=== PATIENT | male | born 1970 | race Caucasian/White ===

== ENCOUNTER 2016-11-13 14:09 | Emergency (ER) | payer MEDICARE ==
[2016-11-13 14:18] VITALS: BP 147/93
[2016-11-13] MEDS ORDERED: diphenhydrAMINE 50 MG/ML SDV IM ONE (14:46)
--- NOTE | 2016-11-13 14:48 | EDM.PDOC ---
ED HPI GENERAL MEDICAL PROBLEM - General Chief Complaint: Allergic Reaction Stated Complaint: STUNG BY BEE Time Seen by Provider: 11/13/16 14:20 Source of Information: Reports: Patient History Limitations: Reports: No Limitations - History of Present Illness INITIAL COMMENTS - FREE TEXT/NARRATIVE: 46-year-old male stung on the lower lip by a bee within the last hour he's got significant swelling of his lip. He thought he was having an allergic reaction. No shortness of breath or wheezing, no other rash. Onset: Sudden Duration: Hour(s): (Within the last hour) Location: Reports: Face - Related Data Allergies Allergy/AdvReac Type Severity Reaction Status Date / Time erythromycin base AdvReac Stomach Verified 11/13/16 14:17 Upset Home Meds: Home Meds Divalproex Sodium [Depakote ER] 1,500 mg PO DAILY 12/22/14 [History] Ziprasidone HCl [Geodon] 240 mg PO DAILY 12/22/14 [History] Past Medical History HEENT History: Reports: Hard of Hearing, Impaired Vision Musculoskeletal History: Reports: Fracture Psychiatric History: Reports: Anxiety, Depression, Panic Attack Other Psychiatric History: anger issues, shizoeffective disorder - Infectious Disease History Infectious Disease History: Reports: Chicken Pox - Past Surgical History HEENT Surgical History: Reports: Myringotomy w Tube(s) Social & Family History - Tobacco Use Smoking Status *Q: Heavy Tobacco Smoker Years of Tobacco use: 35 Packs/Tins Daily: 1.5 Used Tobacco, but Quit: No Second Hand Smoke Exposure: Yes - Recreational Drug Use Recreational Drug Use: No Recreational Drug Type: Reports: Marijuana/Hashish Recreational Drug Use Frequency: Weekly ED ROS ALLERGIC REACTION - Review of Systems Review Of Systems: See Below Constitutional: Denies: Fever Respiratory: Denies: Shortness of Breath, Cough Cardiovascular: Denies: Chest Pain GI/Abdominal: Denies: Abdominal Pain, Nausea, Vomiting Neurological: Denies: Headache ED EXAM GENERAL NO PERIP PULSE - Physical Exam Exam: See Below Exam Limited By: No Limitations General Appearance: Alert, No Apparent Distress Throat/Mouth: Other (Patient has very significant edema of the lower lip but it is isolated to the lip. He has no oral mucosal swelling, airway compromise or other rash) Neck: Normal Inspection Respiratory/Chest: No Respiratory Distress, Lungs Clear Cardiovascular: Regular Rate, Rhythm Neurological: Alert, Oriented Psychiatric: Normal Affect, Normal Mood Course - Vital Signs Last Recorded V/S: Last Vital Signs Temp 99.1 F 11/13/16 14:21 Pulse 104 H 11/13/16 14:21 Resp 18 11/13/16 14:21 BP 147/93 H 11/13/16 14:21 Pulse Ox 98 11/13/16 14:21 - Orders/Labs/Meds Meds: Medications Discontinued Medications Generic Name Dose Route Start Last Admin Trade Name Nicholas PRN Reason Stop Dose Admin Diphenhydramine HCl 25 mg 11/13/16 14:46 11/13/16 14:54 Benadryl IM 11/13/16 14:47 25 mg ONETIME ONE Administration - Re-Assessments/Exams Free Text/Narrative Re-Assessment/Exam: 11/13/16 14:48 Patient was given 50 mg of Benadryl IM. It was explained to him that this is just a local reaction and cool compresses should reduce the swelling. He was offered steroids but declined. Departure - Departure Time of Disposition: 15:03 Disposition: Home, Self-Care 01 Condition: Good Clinical Impression: Local reaction to bee sting Qualifiers: Encounter type: initial encounter Injury intent: accidental or unintentional Qualified Code(s): T63.441A - Toxic effect of venom of bees, accidental ( unintentional), initial encounter - Discharge Information Instructions: Bee, Wasp, or Hornet Sting Referrals: PCP,None [Primary Care Provider] - Forms: ED Department Discharge Care Plan Goals: Cold compresses to the swollen area should help. Return at any time if trouble breathing or other concerns.
== END 2016-11-13 15:02 | disposition home or self-care (01) ==
LOC: JP.ED 14:09
DX: T63.441A Toxic effect of venom of bees, accidental (unintentional), initial encounter (principal); F17.210 Nicotine dependence, cigarettes, uncomplicated; F41.9 Anxiety disorder, unspecified; F32.9 Major depressive disorder, single episode, unspecified; Z96.22 Myringotomy tube(s) status; Z88.1 Allergy status to other antibiotic agents; Z79.899 Other long term (current) drug therapy
CPT/HCPCS: 96372; 99283; J1200

== ENCOUNTER 2017-06-13 19:22 | Inpatient (IN) | payer MEDICARE ==
[2017-06-13] MEDS ORDERED: SORBITOL PO ONE ×2 (19:23→20:30)
[2017-06-13] MEDS ORDERED: Lactated Ringers 1,000 ML IV ONE (19:23)
[2017-06-13] MEDS ORDERED: ACTIVATED CHARCOAL PO ONE ×2 (19:23→20:30)
[2017-06-13] MEDS ORDERED: Activated Charcoal/Water Susp 25 GM/120 ML Tube PO ONE ×2 (19:23→22:39)
[2017-06-13] MEDS ORDERED: Metoclopramide 10 MG/2 ML SDV IVPUSH ONE (19:24)
--- NOTE | 2017-06-13 19:38 | EDM.PDOCBH ---
ED HPI GENERAL MEDICAL PROBLEM - General Chief Complaint: Drug or Alcohol Abuse Stated Complaint: ILLNESS Time Seen by Provider: 06/13/17 19:25 Source of Information: Reports: Patient, EMS, Old Records History Limitations: Reports: No Limitations - History of Present Illness INITIAL COMMENTS - FREE TEXT/NARRATIVE: 47 yo male presents via EMS for overdose of Mirapex unknown amt, Depakote 500 mg x 49 tabs(per EMS' report), an unknown quantity of an unknown med, and a pint of vodka in a suicide attempt. Ingestions were roughly 90 min before arrival. Just as he finished his ingestions his own mother called him and he told her what he had done. She in turn called 911. Patient showed signs of moderate intoxication en route. Vitals stable. Admitted to EMS that he wants to . Actually, I suspect he took much less Depakote than was initially suspected. The #49 calculation represents the worse case scenario. This bottle dated had 49 tablets missing, but if he had taken them as prescribed the bottle would be fully empty and he would be onto his May refill. Onset: Today Onset Date: 06/13/17 Onset Time: 17:40 Duration: Minutes: Location: Reports: Generalized Quality: Reports: Other (no pain) Severity: Moderate Improves with: Reports: None Worsens with: Reports: Other (? time) Context: Reports: Other (suicide attempt) Associated Symptoms: Reports: Other (mild sedation). 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 (see below) (none) - Related Data Allergies Allergy/AdvReac Type Severity Reaction Status Date / Time erythromycin base AdvReac Stomach Verified 06/13/17 21:30 Upset Home Meds: Home Meds Divalproex Sodium [Depakote ER] 1,000 mg PO DAILY 12/22/14 [History] Pramipexole Di-HCl [Mirapex] 0.25 mg PO BID PRN 06/13/17 [History] Past Medical History HEENT History: Reports: Hard of Hearing, Impaired Vision Musculoskeletal History: Reports: Fracture Psychiatric History: Reports: Anxiety, Depression, Panic Attack Other Psychiatric History: anger issues, shizoeffective disorder - Infectious Disease History Infectious Disease History: Reports: Chicken Pox - Past Surgical History HEENT Surgical History: Reports: Myringotomy w Tube(s) Social & Family History - Tobacco Use Smoking Status *Q: Heavy Tobacco Smoker Years of Tobacco use: 35 Packs/Tins Daily: 1.5 Used Tobacco, but Quit: No Second Hand Smoke Exposure: Yes - Recreational Drug Use Recreational Drug Use: No Recreational Drug Type: Reports: Marijuana/Hashish Recreational Drug Use Frequency: Weekly ED ROS GENERAL - Review of Systems Review Of Systems: See Below Constitutional: Reports: No Symptoms HEENT: Reports: No Symptoms Respiratory: Reports: No Symptoms Cardiovascular: Reports: No Symptoms Endocrine: Reports: No Symptoms GI/Abdominal: Reports: No Symptoms : Reports: No Symptoms Musculoskeletal: Reports: No Symptoms Skin: Reports: No Symptoms Neurological: Reports: Other (mild sedation present on arrival. ) Psychiatric: Reports: Depression, Suicidal Ideation ED EXAM, BEHAVIORAL HEALTH - Physical Exam Exam: See Below Exam Limited By: No Limitations General Appearance: Alert, WD/WN, No Apparent Distress Eye Exam: Bilateral Eye: Normal Inspection Ears: Normal External Exam, Normal Canal, Hearing Grossly Normal Nose: Normal Inspection, Normal Mucosa, No Blood Throat/Mouth: Normal Inspection, Normal Lips, Normal Voice Head: Atraumatic, Normocephalic Neck: Normal Inspection Respiratory/Chest: No Respiratory Distress, Lungs Clear, Normal Breath Sounds, No Accessory Muscle Use Cardiovascular: Regular Rate, Rhythm GI/Abdominal: Normal Bowel Sounds, Soft, Non-Tender, No Distention Back Exam: Normal Inspection. No: CVA Tenderness (R), CVA Tenderness (L) Extremities: Normal Inspection, Normal Range of Motion, Non-Tender, No Pedal Edema Neurological: Alert, Normal Mood/Affect, CN II-XII Intact, Normal Cognition, No Motor/Sensory Deficits, Oriented x 3, Other (intoxication) Psychiatric: Alert, Normal Cognition, Normal Mood, Oriented, Depressed Mood, Flat Affect Skin Exam: Warm, Dry, Intact, Normal color, No rash COURSE, BEHAVIORAL HEALTH COMP - Course Vital Signs: Last Vital Signs Temp 37.0 C 06/14/17 00:05 Pulse 79 06/14/17 00:05 Resp 16 06/14/17 00:05 BP 101/49 L 06/14/17 00:05 Pulse Ox 98 06/14/17 00:05 Orders, Labs, Meds: Active Orders 24 hr Category Date Time Status Cardiac Monitoring [RC] .As Directed Care 06/13/17 19:24 Active DRUG SCREEN, URINE [URCHEM] Stat Lab 06/13/17 19:55 Ordered UA W/MICROSCOPIC [URIN] Stat Lab 06/13/17 19:55 Ordered NS + KCl 20mEq/L [Normal Saline with 20 mEq KCl] 1,000 Med 06/13/17 20:30 Active ml IV ASDIRECTED NS + KCl 20mEq/L [Normal Saline with 20 mEq KCl] 1,000 Med 06/13/17 23:15 Active ml IV ASDIRECTED Medication Orders Potassium Chloride/Sodium Chloride (Normal Saline With 20 Meq Kcl) 1,000 mls @ 500 mls/hr IV ASDIRECTED MAHOGANY Last Admin: 06/13/17 20:52 Dose: 500 mls/hr Potassium Chloride/Sodium Chloride (Normal Saline With 20 Meq Kcl) 1,000 mls @ 250 mls/hr IV ASDIRECTED MAHOGANY Last Admin: 06/13/17 23:29 Dose: 250 mls/hr Laboratory Tests 06/13/17 06/13/17 06/13/17 Range/Units 19:42 19:42 19:42 WBC 9.1 (4.5-11.0) K/uL RBC 4.90 (4.30-5.90) M/uL Hgb 15.7 H (12.0-15.0) g/dL Hct 44.0 (40.0-54.0) % MCV 90 (80-98) fL MCH 32 H (27-31) pg MCHC 36 (32-36) % Plt Count 344 (150-400) K/uL Sodium 139 L (140-148) mmol/L Potassium 3.2 L (3.6-5.2) mmol/L Chloride 101 (100-108) mmol/L Carbon Dioxide 28 (21-32) mmol/L Anion Gap 13.2 (5.0-14.0) mmol/L BUN 10 (7-18) mg/dL Creatinine 0.9 (0.8-1.3) mg/dL Est Cr Clr Drug Dosing 91.56 mL/min Estimated GFR (MDRD) > 60 (>60) Glucose 105 (74-106) mg/dL Calcium 8.5 (8.5-10.1) mg/dL Magnesium (1.8-2.4) mg/dL Total Bilirubin 0.2 (0.2-1.0) mg/dL AST 12 L (15-37) U/L ALT 26 (12-78) U/L Alkaline Phosphatase 80 (46-116) U/L Total Protein 6.7 (6.4-8.2) g/dL Albumin 3.5 (3.4-5.0) g/dL Globulin 3.2 (2.3-3.5) g/dL Albumin/Globulin Ratio 1.1 L (1.2-2.2) Urine Color Urine Appearance Urine pH (4.5-8.0) Ur Specific Hailey (1.008-1.030) Urine Protein (NEGATIVE) mg/dL Urine Glucose (UA) (NEGATIVE) mg/dL Urine Ketones (NEGATIVE) mg/dL Urine Occult Blood (NEGATIVE) Urine Nitrite (NEGAITVE) Urine Bilirubin (NEGATIVE) Urine Urobilinogen (NORMAL) mg/dL Ur Leukocyte Esterase (NEGATIVE) Urine RBC (0-5) Urine WBC (0-5) Ur Epithelial Cells Amorphous Sediment Urine Bacteria Urine Mucus Salicylates (2.0-20.0) mg/dL Urine Opiates Screen (NEGATIVE) Ur Oxycodone Screen (NEGATIVE) Urine Methadone Screen (NEGATIVE) Ur Propoxyphene Screen (NEGATIVE) Acetaminophen (10.0-30.0) ug/mL Ur Barbiturates Screen (NEGATIVE) Valproic Acid (50.0-100.0) ug/mL Ur Tricyclics Screen (NEGATIVE) Ur Phencyclidine Scrn (NEGATIVE) Ur Amphetamine Screen (NEGATIVE) U Methamphetamines Scrn (NEGATIVE) Urine MDMA Screen (NEGATIVE) U Benzodiazepines Scrn (NEGATIVE) U Cocaine Metab Screen (NEGATIVE) U Marijuana (THC) Screen (NEGATIVE) Ethyl Alcohol 93 mg/dL 06/13/17 06/13/17 06/13/17 Range/Units 19:42 19:42 19:42 WBC (4.5-11.0) K/uL RBC (4.30-5.90) M/uL Hgb (12.0-15.0) g/dL Hct (40.0-54.0) % MCV (80-98) fL MCH (27-31) pg MCHC (32-36) % Plt Count (150-400) K/uL Sodium (140-148) mmol/L Potassium (3.6-5.2) mmol/L Chloride (100-108) mmol/L Carbon Dioxide (21-32) mmol/L Anion Gap (5.0-14.0) mmol/L BUN (7-18) mg/dL Creatinine (0.8-1.3) mg/dL Est Cr Clr Drug Dosing mL/min Estimated GFR (MDRD) (>60) Glucose (74-106) mg/dL Calcium (8.5-10.1) mg/dL Magnesium (1.8-2.4) mg/dL Total Bilirubin (0.2-1.0) mg/dL AST (15-37) U/L ALT (12-78) U/L Alkaline Phosphatase (46-116) U/L Total Protein (6.4-8.2) g/dL Albumin (3.4-5.0) g/dL Globulin (2.3-3.5) g/dL Albumin/Globulin Ratio (1.2-2.2) Urine Color Urine Appearance Urine pH (4.5-8.0) Ur Specific Hailey (1.008-1.030) Urine Protein (NEGATIVE) mg/dL Urine Glucose (UA) (NEGATIVE) mg/dL Urine Ketones (NEGATIVE) mg/dL Urine Occult Blood (NEGATIVE) Urine Nitrite (NEGAITVE) Urine Bilirubin (NEGATIVE) Urine Urobilinogen (NORMAL) mg/dL Ur Leukocyte Esterase (NEGATIVE) Urine RBC (0-5) Urine WBC (0-5) Ur Epithelial Cells Amorphous Sediment Urine Bacteria Urine Mucus Salicylates 4.8 (2.0-20.0) mg/dL Urine Opiates Screen (NEGATIVE) Ur Oxycodone Screen (NEGATIVE) Urine Methadone Screen (NEGATIVE) Ur Propoxyphene Screen (NEGATIVE) Acetaminophen 0.0 L (10.0-30.0) ug/mL Ur Barbiturates Screen (NEGATIVE) Valproic Acid 128.3 H (50.0-100.0) ug/mL Ur Tricyclics Screen (NEGATIVE) Ur Phencyclidine Scrn (NEGATIVE) Ur Amphetamine Screen (NEGATIVE) U Methamphetamines Scrn (NEGATIVE) Urine MDMA Screen (NEGATIVE) U Benzodiazepines Scrn (NEGATIVE) U Cocaine Metab Screen (NEGATIVE) U Marijuana (THC) Screen (NEGATIVE) Ethyl Alcohol mg/dL 04/02/18 04/02/18 04/02/18 Range/Units 19:55 19:55 20:16 WBC (4.5-11.0) K/uL RBC (4.30-5.90) M/uL Hgb (12.0-15.0) g/dL Hct (40.0-54.0) % MCV (80-98) fL MCH (27-31) pg MCHC (32-36) % Plt Count (150-400) K/uL Sodium (140-148) mmol/L Potassium (3.6-5.2) mmol/L Chloride (100-108) mmol/L Carbon Dioxide (21-32) mmol/L Anion Gap (5.0-14.0) mmol/L BUN (7-18) mg/dL Creatinine (0.8-1.3) mg/dL Est Cr Clr Drug Dosing mL/min Estimated GFR (MDRD) (>60) Glucose (74-106) mg/dL Calcium (8.5-10.1) mg/dL Magnesium 0.5 L (1.8-2.4) mg/dL Total Bilirubin (0.2-1.0) mg/dL AST (15-37) U/L ALT (12-78) U/L Alkaline Phosphatase (46-116) U/L Total Protein (6.4-8.2) g/dL Albumin (3.4-5.0) g/dL Globulin (2.3-3.5) g/dL Albumin/Globulin Ratio (1.2-2.2) Urine Color Yellow Urine Appearance Clear Urine pH 6.0 (4.5-8.0) Ur Specific Hailey 1.015 (1.008-1.030) Urine Protein Negative (NEGATIVE) mg/dL Urine Glucose (UA) Normal (NEGATIVE) mg/dL Urine Ketones Negative (NEGATIVE) mg/dL Urine Occult Blood Negative (NEGATIVE) Urine Nitrite Negative (NEGAITVE) Urine Bilirubin Negative (NEGATIVE) Urine Urobilinogen Normal (NORMAL) mg/dL Ur Leukocyte Esterase Negative (NEGATIVE) Urine RBC 0-5 (0-5) Urine WBC Not seen (0-5) Ur Epithelial Cells Not seen Amorphous Sediment Not seen Urine Bacteria Not seen Urine Mucus Not seen Salicylates (2.0-20.0) mg/dL Urine Opiates Screen Negative (NEGATIVE) Ur Oxycodone Screen Negative (NEGATIVE) Urine Methadone Screen Negative (NEGATIVE) Ur Propoxyphene Screen Negative (NEGATIVE) Acetaminophen (10.0-30.0) ug/mL Ur Barbiturates Screen Negative (NEGATIVE) Valproic Acid (50.0-100.0) ug/mL Ur Tricyclics Screen Negative (NEGATIVE) Ur Phencyclidine Scrn Negative (NEGATIVE) Ur Amphetamine Screen Negative (NEGATIVE) U Methamphetamines Scrn Negative (NEGATIVE) Urine MDMA Screen Negative (NEGATIVE) U Benzodiazepines Scrn Negative (NEGATIVE) U Cocaine Metab Screen Negative (NEGATIVE) U Marijuana (THC) Screen Positive H (NEGATIVE) Ethyl Alcohol mg/dL 06/13/17 Range/Units 21:45 WBC (4.5-11.0) K/uL RBC (4.30-5.90) M/uL Hgb (12.0-15.0) g/dL Hct (40.0-54.0) % MCV (80-98) fL MCH (27-31) pg MCHC (32-36) % Plt Count (150-400) K/uL Sodium (140-148) mmol/L Potassium (3.6-5.2) mmol/L Chloride (100-108) mmol/L Carbon Dioxide (21-32) mmol/L Anion Gap (5.0-14.0) mmol/L BUN (7-18) mg/dL Creatinine (0.8-1.3) mg/dL Est Cr Clr Drug Dosing mL/min Estimated GFR (MDRD) (>60) Glucose (74-106) mg/dL Calcium (8.5-10.1) mg/dL Magnesium (1.8-2.4) mg/dL Total Bilirubin (0.2-1.0) mg/dL AST (15-37) U/L ALT (12-78) U/L Alkaline Phosphatase (46-116) U/L Total Protein (6.4-8.2) g/dL Albumin (3.4-5.0) g/dL Globulin (2.3-3.5) g/dL Albumin/Globulin Ratio (1.2-2.2) Urine Color Urine Appearance Urine pH (4.5-8.0) Ur Specific Hailey (1.008-1.030) Urine Protein (NEGATIVE) mg/dL Urine Glucose (UA) (NEGATIVE) mg/dL Urine Ketones (NEGATIVE) mg/dL Urine Occult Blood (NEGATIVE) Urine Nitrite (NEGAITVE) Urine Bilirubin (NEGATIVE) Urine Urobilinogen (NORMAL) mg/dL Ur Leukocyte Esterase (NEGATIVE) Urine RBC (0-5) Urine WBC (0-5) Ur Epithelial Cells Amorphous Sediment Urine Bacteria Urine Mucus Salicylates (2.0-20.0) mg/dL Urine Opiates Screen (NEGATIVE) Ur Oxycodone Screen (NEGATIVE) Urine Methadone Screen (NEGATIVE) Ur Propoxyphene Screen (NEGATIVE) Acetaminophen (10.0-30.0) ug/mL Ur Barbiturates Screen (NEGATIVE) Valproic Acid 161.9 H (50.0-100.0) ug/mL Ur Tricyclics Screen (NEGATIVE) Ur Phencyclidine Scrn (NEGATIVE) Ur Amphetamine Screen (NEGATIVE) U Methamphetamines Scrn (NEGATIVE) Urine MDMA Screen (NEGATIVE) U Benzodiazepines Scrn (NEGATIVE) U Cocaine Metab Screen (NEGATIVE) U Marijuana (THC) Screen (NEGATIVE) Ethyl Alcohol mg/dL Medications Generic Name Dose Route Start Last Admin Trade Name Freq PRN Reason Stop Dose Admin Potassium Chloride/Sodium Chloride 1,000 mls @ 500 mls/hr 06/13/17 20:30 05/01 20:52 Normal Saline With 20 Meq Kcl IV 500 mls/hr ASDIRECTED MAHOGANY Administration Potassium Chloride/Sodium Chloride 1,000 mls @ 250 mls/hr 06/13/17 23:15 05/01 23:29 Normal Saline With 20 Meq Kcl IV 250 mls/hr ASDIRECTED MAHOGANY Administration Discontinued Medications Generic Name Dose Route Start Last Admin Trade Name Freq PRN Reason Stop Dose Admin Charcoal 25 gm 06/13/17 19:23 06/13/17 19:47 Actidose-Aqua PO 06/13/17 19:24 25 gm ONETIME ONE Administration Charcoal 25 gm 06/13/17 22:39 06/13/17 22:48 Actidose-Aqua PO 06/13/17 22:40 25 gm ONETIME ONE Administration Charcoal/Sorbitol 25 gm 06/13/17 19:23 06/13/17 19:45 Insta-Rhiannon Sorbitol PO 06/13/17 19:24 25 gm NOW ONE Administration Charcoal/Sorbitol 25 gm 06/13/17 20:30 06/13/17 20:40 Insta-Rhiannon Sorbitol PO 06/13/17 20:31 25 gm ONETIME ONE Administration Lactated Ringer's 1,000 mls @ 1,000 mls/hr 06/13/17 19:23 06/13/17 19:47 Ringers, Lactated IV 06/13/17 20:22 1,000 mls/hr BOLUS ONE Administration Magnesium Sulfate 2 gm/ Premix 50 mls @ 12.5 mls/hr 06/13/17 20:26 IV 06/14/17 00:25 ONETIME ONE Magnesium Sulfate 2 gm/ Premix 50 mls @ 50 mls/hr 06/13/17 20:40 06/13/17 20: 46 IV 06/13/17 21:25 50 mls/hr ONETIME ONE Administration Magnesium Sulfate 2 gm/ Premix 50 mls @ 50 mls/hr 06/13/17 21:40 06/13/17 21: 38 IV 06/13/17 22:39 50 mls/hr ONETIME ONE Administration Magnesium Oxide 800 mg 06/14/17 00:13 Magnesium Oxide PO 06/14/17 00:14 ONETIME ONE Metoclopramide HCl 10 mg 06/13/17 19:24 06/13/17 19:50 Reglan IVPUSH 06/13/17 19:25 10 mg ONETIME ONE Administration Potassium Chloride 20 meq 06/14/17 00:14 Klor-Con M20 PO 06/14/17 00:15 ONETIME ONE Thiamine HCl 100 mg 06/13/17 20:42 06/13/17 20:58 Vitamin B-1 PO 06/13/17 20:43 100 mg ONETIME ONE Administration Departure - Departure Time of Disposition: 01:00 Disposition: Refer to Observation Condition: Fair Clinical Impression: Suicide attempt, Hypomagnesemia, Hypokalemia Alcohol intoxication Qualifiers: Complication of substance-induced condition: with unspecified complication Qualified Code(s): F10.929 - Alcohol use, unspecified with intoxication, unspecified Acute drug overdose Qualifiers: Encounter type: initial encounter Injury intent: intentional self-harm Qualified Code(s): T50.902A - Poisoning by unspecified drugs, medicaments and biological substances, intentional self-harm, initial encounter - Discharge Information Referrals: PCP,None [Primary Care Provider] - Forms: ED Department Discharge - My Orders Last 24 Hours: My Active Orders 06/13/17 19:24 Cardiac Monitoring [RC] .As Directed 06/13/17 19:55 DRUG SCREEN, URINE [URCHEM] Stat UA W/MICROSCOPIC [URIN] Stat 06/13/17 20:30 NS + KCl 20mEq/L [Normal Saline with 20 mEq KCl] 1,000 ml IV ASDIRECTED 06/13/17 23:15 NS + KCl 20mEq/L [Normal Saline with 20 mEq KCl] 1,000 ml IV ASDIRECTED - Assessment/Plan Last 24 Hours: My Active Orders 06/13/17 19:24 Cardiac Monitoring [RC] .As Directed 06/13/17 19:55 DRUG SCREEN, URINE [URCHEM] Stat UA W/MICROSCOPIC [URIN] Stat 06/13/17 20:30 NS + KCl 20mEq/L [Normal Saline with 20 mEq KCl] 1,000 ml IV ASDIRECTED 06/13/17 23:15 NS + KCl 20mEq/L [Normal Saline with 20 mEq KCl] 1,000 ml IV ASDIRECTED
[2017-06-13] MEDS ORDERED: Magnesium Sulfate/Water 2 GM in Premix Bag 1 BAG IV ONE ×3 (20:26→21:40)
[2017-06-13] MEDS ORDERED: NS + KCl 20mEq/L 1,000 ML IV SCH ×2 (20:30→23:15)
[2017-06-13] MEDS ORDERED: Thiamine 100 MG Tab PO ONE (20:42)
[2017-06-14] MEDS ORDERED: Magnesium Oxide 400 MG Tab PO ONE (00:13)
[2017-06-14] MEDS ORDERED: Potassium Chloride 20 MEQ Tab.ER PO ONE (00:14)
--- NOTE | 2017-06-14 01:58 | PCM.HP ---
H&P History of Present Illness - General Date of Service: 06/14/17 Admit Problem/Dx: Admission Diagnosis/Problem Admission Diagnosis/Problem Drug overdose - suicide Source of Information: Patient, Provider, RN Notes Reviewed History Limitations: Reports: Altered Mental Status (Lethargic secondary to drug overdose) - History of Present Illness Initial Comments - Free Text/Narative: Mr. Rubio is a 47-year-old gentleman who is admitted through the emergency department after an intentional drug overdose in the suicide attempt. He admits that he is been feeling depressed and thinking about suicide for some time. Things came to a head today when he consumed a large amount of vodka and took an overdose of valproic acid. Specific amount is unknown, possibly up to 49, 500 mg tablets. He also apparently took some Mirapex and possibly a another drug. Poison control was contacted, he has received activated charcoal. They have recommended admission for monitoring. Also found to have hypokalemia and severe hypomagnesemia. - Related Data Allergies/Adverse Reactions: Allergies Allergy/AdvReac Type Severity Reaction Status Date / Time erythromycin base AdvReac Stomach Verified 06/13/17 21:30 Upset Home Medications: Home Meds Divalproex Sodium [Depakote ER] 1,000 mg PO DAILY 12/22/14 [History] Pramipexole Di-HCl [Mirapex] 0.25 mg PO BID PRN 06/13/17 [History] Past Medical History HEENT History: Reports: Hard of Hearing, Impaired Vision Other HEENT History: Upper and lower dentures unable to wear bottom Musculoskeletal History: Reports: Fracture Neurological History: Reports: TIA Psychiatric History: Reports: Anxiety, Depression, Panic Attack Other Psychiatric History: anger issues, shizoeffective disorder - Infectious Disease History Infectious Disease History: Reports: Chicken Pox - Past Surgical History HEENT Surgical History: Reports: Myringotomy w Tube(s) Social & Family History - Tobacco Use Smoking Status *Q: Heavy Tobacco Smoker Years of Tobacco use: 35 Packs/Tins Daily: 1.5 Used Tobacco, but Quit: No Second Hand Smoke Exposure: Yes - Caffeine Use Caffeine Use: Reports: Coffee, Soda - Alcohol Use Days Per Week of Alcohol Use: 5 Number of Drinks Per Day: 2 Total Drinks Per Week: 10 - Recreational Drug Use Recreational Drug Use: No Recreational Drug Type: Reports: Marijuana/Hashish Recreational Drug Use Frequency: Weekly H&P Review of Systems - Review of Systems: Review Of Systems: See Below General: Reports: No Symptoms HEENT: Reports: No Symptoms Pulmonary: Reports: No Symptoms Cardiovascular: Reports: No Symptoms Gastrointestinal: Reports: No Symptoms Genitourinary: Reports: No Symptoms Musculoskeletal: Reports: No Symptoms Skin: Reports: No Symptoms Psychiatric: Reports: Depression, Anxiety, Suicidal Ideation. Denies: Hallucinations, Homicidal Ideation Neurological: Reports: No Symptoms Hematologic/Lymphatic: Reports: No Symptoms Immunologic: Reports: No Symptoms Exam - Exam Exam: See Below - Vital Signs Vital Signs: Last Vital Signs Temp 98.6 F 06/14/17 00:05 Pulse 79 06/14/17 01:00 Resp 14 06/14/17 01:00 BP 120/69 06/14/17 01:00 Pulse Ox 98 06/14/17 01:00 Weight: 170 lb - Exam Quality Assessment: DVT Prophylaxis General: Cooperative, Sedated, Lethargic HEENT: Conjunctiva Clear, Mucosa Moist & Svensen, Normal Nasal Septum, Posterior Pharynx Clear, Pupils Equal. No: Hearing Intact Neck: Supple, Trachea Midline, +2 Carotid Pulse wo Bruit Lungs: Clear to Auscultation, Normal Respiratory Effort Cardiovascular: Regular Rate, Regular Rhythm, Normal S1, Normal S2. No: Systolic Murmur, Diastolic Murmur GI/Abdominal Exam: Soft, Non-Tender, No Organomegaly, No Distention Back Exam: Normal Inspection, Full Range of Motion Extremities: Non-Tender, No Pedal Edema Skin: Warm, Dry, Intact Neurological: Cranial Nerves Intact, Strength Equal Bilateral, Normal Speech, Normal Tone, Sensation Intact. No: Focal Deficit Neuro Extensive - Mental Status: Memory Loss-Recent Events. No: Alert Psychiatric: Depressed, Suicidal Ideation. No: Homicidal Ideation, Hallucinations - Patient Data Lab Results Last 24 hrs: Laboratory Results - last 24 hr 06/13/17 06/13/17 06/13/17 Range/Units 19:42 19:42 19:42 WBC 9.1 (4.5-11.0) K/uL RBC 4.90 (4.30-5.90) M/uL Hgb 15.7 H (12.0-15.0) g/dL Hct 44.0 (40.0-54.0) % MCV 90 (80-98) fL MCH 32 H (27-31) pg MCHC 36 (32-36) % Plt Count 344 (150-400) K/uL Sodium 139 L (140-148) mmol/L Potassium 3.2 L (3.6-5.2) mmol/L Chloride 101 (100-108) mmol/L Carbon Dioxide 28 (21-32) mmol/L Anion Gap 13.2 (5.0-14.0) mmol/L BUN 10 (7-18) mg/dL Creatinine 0.9 (0.8-1.3) mg/dL Est Cr Clr Drug Dosing 91.56 mL/min Estimated GFR (MDRD) > 60 (>60) Glucose 105 (74-106) mg/dL Calcium 8.5 (8.5-10.1) mg/dL Magnesium (1.8-2.4) mg/dL Total Bilirubin 0.2 (0.2-1.0) mg/dL AST 12 L (15-37) U/L ALT 26 (12-78) U/L Alkaline Phosphatase 80 (46-116) U/L Total Protein 6.7 (6.4-8.2) g/dL Albumin 3.5 (3.4-5.0) g/dL Globulin 3.2 (2.3-3.5) g/dL Albumin/Globulin Ratio 1.1 L (1.2-2.2) Urine Color Urine Appearance Urine pH (4.5-8.0) Ur Specific [place] (1.008-1.030) Urine Protein (NEGATIVE) mg/dL Urine Glucose (UA) (NEGATIVE) mg/dL Urine Ketones (NEGATIVE) mg/dL Urine Occult Blood (NEGATIVE) Urine Nitrite (NEGAITVE) Urine Bilirubin (NEGATIVE) Urine Urobilinogen (NORMAL) mg/dL Ur Leukocyte Esterase (NEGATIVE) Urine RBC (0-5) Urine WBC (0-5) Ur Epithelial Cells Amorphous Sediment Urine Bacteria Urine Mucus Salicylates (2.0-20.0) mg/dL Urine Opiates Screen (NEGATIVE) Ur Oxycodone Screen (NEGATIVE) Urine Methadone Screen (NEGATIVE) Ur Propoxyphene Screen (NEGATIVE) Acetaminophen (10.0-30.0) ug/mL Ur Barbiturates Screen (NEGATIVE) Valproic Acid (50.0-100.0) ug/mL Ur Tricyclics Screen (NEGATIVE) Ur Phencyclidine Scrn (NEGATIVE) Ur Amphetamine Screen (NEGATIVE) U Methamphetamines Scrn (NEGATIVE) Urine MDMA Screen (NEGATIVE) U Benzodiazepines Scrn (NEGATIVE) U Cocaine Metab Screen (NEGATIVE) U Marijuana (THC) Screen (NEGATIVE) Ethyl Alcohol 93 mg/dL 06/13/17 06/13/17 06/13/17 Range/Units 19:42 19:42 19:42 WBC (4.5-11.0) K/uL RBC (4.30-5.90) M/uL Hgb (12.0-15.0) g/dL Hct (40.0-54.0) % MCV (80-98) fL MCH (27-31) pg MCHC (32-36) % Plt Count (150-400) K/uL Sodium (140-148) mmol/L Potassium (3.6-5.2) mmol/L Chloride (100-108) mmol/L Carbon Dioxide (21-32) mmol/L Anion Gap (5.0-14.0) mmol/L BUN (7-18) mg/dL Creatinine (0.8-1.3) mg/dL Est Cr Clr Drug Dosing mL/min Estimated GFR (MDRD) (>60) Glucose (74-106) mg/dL Calcium (8.5-10.1) mg/dL Magnesium (1.8-2.4) mg/dL Total Bilirubin (0.2-1.0) mg/dL AST (15-37) U/L ALT (12-78) U/L Alkaline Phosphatase (46-116) U/L Total Protein (6.4-8.2) g/dL Albumin (3.4-5.0) g/dL Globulin (2.3-3.5) g/dL Albumin/Globulin Ratio (1.2-2.2) Urine Color Urine Appearance Urine pH (4.5-8.0) Ur Specific [place] (1.008-1.030) Urine Protein (NEGATIVE) mg/dL Urine Glucose (UA) (NEGATIVE) mg/dL Urine Ketones (NEGATIVE) mg/dL Urine Occult Blood (NEGATIVE) Urine Nitrite (NEGAITVE) Urine Bilirubin (NEGATIVE) Urine Urobilinogen (NORMAL) mg/dL Ur Leukocyte Esterase (NEGATIVE) Urine RBC (0-5) Urine WBC (0-5) Ur Epithelial Cells Amorphous Sediment Urine Bacteria Urine Mucus Salicylates 4.8 (2.0-20.0) mg/dL Urine Opiates Screen (NEGATIVE) Ur Oxycodone Screen (NEGATIVE) Urine Methadone Screen (NEGATIVE) Ur Propoxyphene Screen (NEGATIVE) Acetaminophen 0.0 L (10.0-30.0) ug/mL Ur Barbiturates Screen (NEGATIVE) Valproic Acid 128.3 H (50.0-100.0) ug/mL Ur Tricyclics Screen (NEGATIVE) Ur Phencyclidine Scrn (NEGATIVE) Ur Amphetamine Screen (NEGATIVE) U Methamphetamines Scrn (NEGATIVE) Urine MDMA Screen (NEGATIVE) U Benzodiazepines Scrn (NEGATIVE) U Cocaine Metab Screen (NEGATIVE) U Marijuana (THC) Screen (NEGATIVE) Ethyl Alcohol mg/dL 06/13/17 06/13/17 06/13/17 Range/Units 19:55 19:55 20:16 WBC (4.5-11.0) K/uL RBC (4.30-5.90) M/uL Hgb (12.0-15.0) g/dL Hct (40.0-54.0) % MCV (80-98) fL MCH (27-31) pg MCHC (32-36) % Plt Count (150-400) K/uL Sodium (140-148) mmol/L Potassium (3.6-5.2) mmol/L Chloride (100-108) mmol/L Carbon Dioxide (21-32) mmol/L Anion Gap (5.0-14.0) mmol/L BUN (7-18) mg/dL Creatinine (0.8-1.3) mg/dL Est Cr Clr Drug Dosing mL/min Estimated GFR (MDRD) (>60) Glucose (74-106) mg/dL Calcium (8.5-10.1) mg/dL Magnesium 0.5 L (1.8-2.4) mg/dL Total Bilirubin (0.2-1.0) mg/dL AST (15-37) U/L ALT (12-78) U/L Alkaline Phosphatase (46-116) U/L Total Protein (6.4-8.2) g/dL Albumin (3.4-5.0) g/dL Globulin (2.3-3.5) g/dL Albumin/Globulin Ratio (1.2-2.2) Urine Color Yellow Urine Appearance Clear Urine pH 6.0 (4.5-8.0) Ur Specific [place] 1.015 (1.008-1.030) Urine Protein Negative (NEGATIVE) mg/dL Urine Glucose (UA) Normal (NEGATIVE) mg/dL Urine Ketones Negative (NEGATIVE) mg/dL Urine Occult Blood Negative (NEGATIVE) Urine Nitrite Negative (NEGAITVE) Urine Bilirubin Negative (NEGATIVE) Urine Urobilinogen Normal (NORMAL) mg/dL Ur Leukocyte Esterase Negative (NEGATIVE) Urine RBC 0-5 (0-5) Urine WBC Not seen (0-5) Ur Epithelial Cells Not seen Amorphous Sediment Not seen Urine Bacteria Not seen Urine Mucus Not seen Salicylates (2.0-20.0) mg/dL Urine Opiates Screen Negative (NEGATIVE) Ur Oxycodone Screen Negative (NEGATIVE) Urine Methadone Screen Negative (NEGATIVE) Ur Propoxyphene Screen Negative (NEGATIVE) Acetaminophen (10.0-30.0) ug/mL Ur Barbiturates Screen Negative (NEGATIVE) Valproic Acid (50.0-100.0) ug/mL Ur Tricyclics Screen Negative (NEGATIVE) Ur Phencyclidine Scrn Negative (NEGATIVE) Ur Amphetamine Screen Negative (NEGATIVE) U Methamphetamines Scrn Negative (NEGATIVE) Urine MDMA Screen Negative (NEGATIVE) U Benzodiazepines Scrn Negative (NEGATIVE) U Cocaine Metab Screen Negative (NEGATIVE) U Marijuana (THC) Screen Positive H (NEGATIVE) Ethyl Alcohol mg/dL 06/13/17 Range/Units 21:45 WBC (4.5-11.0) K/uL RBC (4.30-5.90) M/uL Hgb (12.0-15.0) g/dL Hct (40.0-54.0) % MCV (80-98) fL MCH (27-31) pg MCHC (32-36) % Plt Count (150-400) K/uL Sodium (140-148) mmol/L Potassium (3.6-5.2) mmol/L Chloride (100-108) mmol/L Carbon Dioxide (21-32) mmol/L Anion Gap (5.0-14.0) mmol/L BUN (7-18) mg/dL Creatinine (0.8-1.3) mg/dL Est Cr Clr Drug Dosing mL/min Estimated GFR (MDRD) (>60) Glucose (74-106) mg/dL Calcium (8.5-10.1) mg/dL Magnesium (1.8-2.4) mg/dL Total Bilirubin (0.2-1.0) mg/dL AST (15-37) U/L ALT (12-78) U/L Alkaline Phosphatase (46-116) U/L Total Protein (6.4-8.2) g/dL Albumin (3.4-5.0) g/dL Globulin (2.3-3.5) g/dL Albumin/Globulin Ratio (1.2-2.2) Urine Color Urine Appearance Urine pH (4.5-8.0) Ur Specific [place] (1.008-1.030) Urine Protein (NEGATIVE) mg/dL Urine Glucose (UA) (NEGATIVE) mg/dL Urine Ketones (NEGATIVE) mg/dL Urine Occult Blood (NEGATIVE) Urine Nitrite (NEGAITVE) Urine Bilirubin (NEGATIVE) Urine Urobilinogen (NORMAL) mg/dL Ur Leukocyte Esterase (NEGATIVE) Urine RBC (0-5) Urine WBC (0-5) Ur Epithelial Cells Amorphous Sediment Urine Bacteria Urine Mucus Salicylates (2.0-20.0) mg/dL Urine Opiates Screen (NEGATIVE) Ur Oxycodone Screen (NEGATIVE) Urine Methadone Screen (NEGATIVE) Ur Propoxyphene Screen (NEGATIVE) Acetaminophen (10.0-30.0) ug/mL Ur Barbiturates Screen (NEGATIVE) Valproic Acid 161.9 H (50.0-100.0) ug/mL Ur Tricyclics Screen (NEGATIVE) Ur Phencyclidine Scrn (NEGATIVE) Ur Amphetamine Screen (NEGATIVE) U Methamphetamines Scrn (NEGATIVE) Urine MDMA Screen (NEGATIVE) U Benzodiazepines Scrn (NEGATIVE) U Cocaine Metab Screen (NEGATIVE) U Marijuana (THC) Screen (NEGATIVE) Ethyl Alcohol mg/dL Result Diagrams: 06/13/17 19:42 06/13/17 19:42 *Q Meaningful Use (ADM) - VTE Risk Assess *Q Each Risk Factor Represents 1 Point: Age 41 - 59 years, Obesity ( BMI > 25 kg/m2 ) Total Score 1 Point Risk Factors: 2 Each Risk Factor Represents 2 Points: None Total Score 2 Point Risk Factors: 0 Each Risk Factor Represents 3 Points: None Total Score 3 Point Risk Factors: 0 Each Risk Factor Represents 5 Points: None Total Score 5 Point Risk Factors: 0 Venous Thromboembolism Risk Factor Score *Q: 2 Problem List Initiated/Reviewed/Updated: Yes Orders Last 24hrs: Active Orders 24 hr Category Date Time Status Patient Status Manage Transfer [TRANSFER] Routine ADT 06/14/17 01:40 Ordered Cardiac Monitoring [RC] .As Directed Care 06/13/17 19:24 Active DRUG SCREEN, URINE [URCHEM] Stat Lab 06/13/17 19:55 Ordered UA W/MICROSCOPIC [URIN] Stat Lab 06/13/17 19:55 Ordered NS + KCl 20mEq/L [Normal Saline with 20 mEq KCl] 1,000 Med 06/13/17 20:30 Active ml IV ASDIRECTED NS + KCl 20mEq/L [Normal Saline with 20 mEq KCl] 1,000 Med 06/13/17 23:15 Active ml IV ASDIRECTED Resuscitation Status Routine Resus Stat 06/14/17 01:41 Ordered Medication Orders Potassium Chloride/Sodium Chloride (Normal Saline With 20 Meq Kcl) 1,000 mls @ 500 mls/hr IV ASDIRECTED [facility] Last Admin: 06/13/17 20:52 Dose: 500 mls/hr Potassium Chloride/Sodium Chloride (Normal Saline With 20 Meq Kcl) 1,000 mls @ 250 mls/hr IV ASDIRECTED [facility] Last Admin: 06/13/17 23:29 Dose: 250 mls/hr Assessment/Plan Comment:: ASSESSMENT AND PLAN INTENTIONAL DRUG OVERDOSE, SUICIDE ATTEMPT-reports feeling depressed and suicidal over the past few weeks. Drinks alcohol and smokes marijuana on a regular basis. Previous history of long-term methamphetamine use, reports that he has not used methamphetamine over the past 3 months. Previous history of depression as well as schizoaffective disorder. Consumed alcohol this evening as well as overdose of valproic acid, also possible ingestion of Mirapex and unnamed medication. He has received activated charcoal in the emergency department. Poison control is recommended admission cardiac monitoring. -ICU admission - cardiac monitoring -repeat valproic acid level in a.m. -suicide precautions, monitor every 15 minutes -transfer to inpatient psychiatric facility when medically stable HYPOMAGNESEMIA-he has received 6 g of magnesium sulfate in the emergency department - 2 g magnesium sulfate at 6 AM -magnesium oxide 400 mg twice daily -repeat magnesium level in a.m. HYPOKALEMIA-IV potassium replacement in the emergency department -recheck potassium level in a.m. MAINTENANCE ISSUES -DVT prophylaxis; SCUDs -GI prophylaxis; not indicated -Henriquez catheter; not required -Nutrition;Regular diet -Nicotine dependence; not required CODE STATUS- FULL CODE ADMISSION STATUS-patient will be admitted to inpatient status, expect at least a 2 night hospital stay for evaluation and management of problems as outlined above. At the time of this admission I do not reasonably expected evaluation and management of this problem will require more than a 96 hour hospital stay. DISPOSITION-anticipate discharge to home after the hospital stay. PRIMARY CARE PROVIDER-Fausto Sweet
[2017-06-14] MEDS ORDERED: Sodium Chloride 0.9% 10 ML Syringe FLUSH PRN (02:13)
[2017-06-14] MEDS ORDERED: NS + KCl 20mEq/L 1,000 ML IV SCH (02:13)
[2017-06-14] MEDS ORDERED: Ondansetron 4 MG/2 ML SDV IV PRN (02:13)
[2017-06-14] MEDS ORDERED: Acetaminophen 325 MG Tab PO PRN (02:13)
[2017-06-14] MEDS ORDERED: Polyethylene Glycol 3350 Powder 17 GM Packet PO PRN (02:13)
[2017-06-14] MEDS ORDERED: Magnesium Hydroxide 400 MG/5 ML Susp 30 ML Cup PO PRN (02:13)
[2017-06-14] MEDS ORDERED: Magnesium Sulfate/Water 2 GM in Premix Bag 1 BAG IV ONE (06:00)
[2017-06-14] MEDS: Magnesium Oxide 400 MG Tab PO SCH ×2 (10:01→20:40)
--- NOTE | 2017-06-14 10:02 | PCM.PN ---
- General Info Date of Service: 06/14/17 Functional Status: Reports: Tolerating Diet, Urinating - Review of Systems General: Reports: No Symptoms Pulmonary: Reports: No Symptoms Cardiovascular: Reports: No Symptoms Gastrointestinal: Reports: No Symptoms Psychiatric: Reports: Depression, Suicidal Ideation - Patient Data Vitals - Most Recent: Last Vital Signs Temp 98.1 F 06/14/17 09:57 Pulse 82 06/14/17 09:57 Resp 14 06/14/17 09:57 BP 145/71 H 06/14/17 09:57 Pulse Ox 98 06/14/17 09:57 Weight - Most Recent: 168 lb 9.6 oz I&O - Last 24 Hours: Intake & Output 06/13/17 06/14/17 06/14/17 22:59 06:59 14:59 Intake Total 508 Output Total 800 1850 Balance -800 -1342 Lab Results Last 24 Hours: Laboratory Results - last 24 hr 06/13/17 06/13/17 06/13/17 Range/Units 19:42 19:42 19:42 WBC 9.1 (4.5-11.0) K/uL RBC 4.90 (4.30-5.90) M/uL Hgb 15.7 H (12.0-15.0) g/dL Hct 44.0 (40.0-54.0) % MCV 90 (80-98) fL MCH 32 H (27-31) pg MCHC 36 (32-36) % Plt Count 344 (150-400) K/uL Sodium 139 L (140-148) mmol/L Potassium 3.2 L (3.6-5.2) mmol/L Chloride 101 (100-108) mmol/L Carbon Dioxide 28 (21-32) mmol/L Anion Gap 13.2 (5.0-14.0) mmol/L BUN 10 (7-18) mg/dL Creatinine 0.9 (0.8-1.3) mg/dL Est Cr Clr Drug Dosing 91.56 mL/min Estimated GFR (MDRD) > 60 (>60) Glucose 105 (74-106) mg/dL Calcium 8.5 (8.5-10.1) mg/dL Magnesium (1.8-2.4) mg/dL Total Bilirubin 0.2 (0.2-1.0) mg/dL AST 12 L (15-37) U/L ALT 26 (12-78) U/L Alkaline Phosphatase 80 (46-116) U/L Total Protein 6.7 (6.4-8.2) g/dL Albumin 3.5 (3.4-5.0) g/dL Globulin 3.2 (2.3-3.5) g/dL Albumin/Globulin Ratio 1.1 L (1.2-2.2) Urine Color Urine Appearance Urine pH (4.5-8.0) Ur Specific [place] (1.008-1.030) Urine Protein (NEGATIVE) mg/dL Urine Glucose (UA) (NEGATIVE) mg/dL Urine Ketones (NEGATIVE) mg/dL Urine Occult Blood (NEGATIVE) Urine Nitrite (NEGAITVE) Urine Bilirubin (NEGATIVE) Urine Urobilinogen (NORMAL) mg/dL Ur Leukocyte Esterase (NEGATIVE) Urine RBC (0-5) Urine WBC (0-5) Ur Epithelial Cells Amorphous Sediment Urine Bacteria Urine Mucus Salicylates (2.0-20.0) mg/dL Urine Opiates Screen (NEGATIVE) Ur Oxycodone Screen (NEGATIVE) Urine Methadone Screen (NEGATIVE) Ur Propoxyphene Screen (NEGATIVE) Acetaminophen (10.0-30.0) ug/mL Ur Barbiturates Screen (NEGATIVE) Valproic Acid (50.0-100.0) ug/mL Ur Tricyclics Screen (NEGATIVE) Ur Phencyclidine Scrn (NEGATIVE) Ur Amphetamine Screen (NEGATIVE) U Methamphetamines Scrn (NEGATIVE) Urine MDMA Screen (NEGATIVE) U Benzodiazepines Scrn (NEGATIVE) U Cocaine Metab Screen (NEGATIVE) U Marijuana (THC) Screen (NEGATIVE) Ethyl Alcohol 93 mg/dL 06/13/17 06/13/17 06/13/17 Range/Units 19:42 19:42 19:42 WBC (4.5-11.0) K/uL RBC (4.30-5.90) M/uL Hgb (12.0-15.0) g/dL Hct (40.0-54.0) % MCV (80-98) fL MCH (27-31) pg MCHC (32-36) % Plt Count (150-400) K/uL Sodium (140-148) mmol/L Potassium (3.6-5.2) mmol/L Chloride (100-108) mmol/L Carbon Dioxide (21-32) mmol/L Anion Gap (5.0-14.0) mmol/L BUN (7-18) mg/dL Creatinine (0.8-1.3) mg/dL Est Cr Clr Drug Dosing mL/min Estimated GFR (MDRD) (>60) Glucose (74-106) mg/dL Calcium (8.5-10.1) mg/dL Magnesium (1.8-2.4) mg/dL Total Bilirubin (0.2-1.0) mg/dL AST (15-37) U/L ALT (12-78) U/L Alkaline Phosphatase (46-116) U/L Total Protein (6.4-8.2) g/dL Albumin (3.4-5.0) g/dL Globulin (2.3-3.5) g/dL Albumin/Globulin Ratio (1.2-2.2) Urine Color Urine Appearance Urine pH (4.5-8.0) Ur Specific [place] (1.008-1.030) Urine Protein (NEGATIVE) mg/dL Urine Glucose (UA) (NEGATIVE) mg/dL Urine Ketones (NEGATIVE) mg/dL Urine Occult Blood (NEGATIVE) Urine Nitrite (NEGAITVE) Urine Bilirubin (NEGATIVE) Urine Urobilinogen (NORMAL) mg/dL Ur Leukocyte Esterase (NEGATIVE) Urine RBC (0-5) Urine WBC (0-5) Ur Epithelial Cells Amorphous Sediment Urine Bacteria Urine Mucus Salicylates 4.8 (2.0-20.0) mg/dL Urine Opiates Screen (NEGATIVE) Ur Oxycodone Screen (NEGATIVE) Urine Methadone Screen (NEGATIVE) Ur Propoxyphene Screen (NEGATIVE) Acetaminophen 0.0 L (10.0-30.0) ug/mL Ur Barbiturates Screen (NEGATIVE) Valproic Acid 128.3 H (50.0-100.0) ug/mL Ur Tricyclics Screen (NEGATIVE) Ur Phencyclidine Scrn (NEGATIVE) Ur Amphetamine Screen (NEGATIVE) U Methamphetamines Scrn (NEGATIVE) Urine MDMA Screen (NEGATIVE) U Benzodiazepines Scrn (NEGATIVE) U Cocaine Metab Screen (NEGATIVE) U Marijuana (THC) Screen (NEGATIVE) Ethyl Alcohol mg/dL 06/13/17 06/13/17 06/13/17 Range/Units 19:55 19:55 20:16 WBC (4.5-11.0) K/uL RBC (4.30-5.90) M/uL Hgb (12.0-15.0) g/dL Hct (40.0-54.0) % MCV (80-98) fL MCH (27-31) pg MCHC (32-36) % Plt Count (150-400) K/uL Sodium (140-148) mmol/L Potassium (3.6-5.2) mmol/L Chloride (100-108) mmol/L Carbon Dioxide (21-32) mmol/L Anion Gap (5.0-14.0) mmol/L BUN (7-18) mg/dL Creatinine (0.8-1.3) mg/dL Est Cr Clr Drug Dosing mL/min Estimated GFR (MDRD) (>60) Glucose (74-106) mg/dL Calcium (8.5-10.1) mg/dL Magnesium 0.5 L (1.8-2.4) mg/dL Total Bilirubin (0.2-1.0) mg/dL AST (15-37) U/L ALT (12-78) U/L Alkaline Phosphatase (46-116) U/L Total Protein (6.4-8.2) g/dL Albumin (3.4-5.0) g/dL Globulin (2.3-3.5) g/dL Albumin/Globulin Ratio (1.2-2.2) Urine Color Yellow Urine Appearance Clear Urine pH 6.0 (4.5-8.0) Ur Specific [place] 1.015 (1.008-1.030) Urine Protein Negative (NEGATIVE) mg/dL Urine Glucose (UA) Normal (NEGATIVE) mg/dL Urine Ketones Negative (NEGATIVE) mg/dL Urine Occult Blood Negative (NEGATIVE) Urine Nitrite Negative (NEGAITVE) Urine Bilirubin Negative (NEGATIVE) Urine Urobilinogen Normal (NORMAL) mg/dL Ur Leukocyte Esterase Negative (NEGATIVE) Urine RBC 0-5 (0-5) Urine WBC Not seen (0-5) Ur Epithelial Cells Not seen Amorphous Sediment Not seen Urine Bacteria Not seen Urine Mucus Not seen Salicylates (2.0-20.0) mg/dL Urine Opiates Screen Negative (NEGATIVE) Ur Oxycodone Screen Negative (NEGATIVE) Urine Methadone Screen Negative (NEGATIVE) Ur Propoxyphene Screen Negative (NEGATIVE) Acetaminophen (10.0-30.0) ug/mL Ur Barbiturates Screen Negative (NEGATIVE) Valproic Acid (50.0-100.0) ug/mL Ur Tricyclics Screen Negative (NEGATIVE) Ur Phencyclidine Scrn Negative (NEGATIVE) Ur Amphetamine Screen Negative (NEGATIVE) U Methamphetamines Scrn Negative (NEGATIVE) Urine MDMA Screen Negative (NEGATIVE) U Benzodiazepines Scrn Negative (NEGATIVE) U Cocaine Metab Screen Negative (NEGATIVE) U Marijuana (THC) Screen Positive H (NEGATIVE) Ethyl Alcohol mg/dL 06/13/17 06/14/17 06/14/17 Range/Units 21:45 04:30 04:30 WBC (4.5-11.0) K/uL RBC (4.30-5.90) M/uL Hgb (12.0-15.0) g/dL Hct (40.0-54.0) % MCV (80-98) fL MCH (27-31) pg MCHC (32-36) % Plt Count (150-400) K/uL Sodium 139 L (140-148) mmol/L Potassium 4.2 (3.6-5.2) mmol/L Chloride 106 (100-108) mmol/L Carbon Dioxide 26 (21-32) mmol/L Anion Gap 11.2 (5.0-14.0) mmol/L BUN 4 L D (7-18) mg/dL Creatinine 1.0 (0.8-1.3) mg/dL Est Cr Clr Drug Dosing 98.78 mL/min Estimated GFR (MDRD) > 60 (>60) Glucose 84 (74-106) mg/dL Calcium 7.9 L (8.5-10.1) mg/dL Magnesium 2.3 (1.8-2.4) mg/dL Total Bilirubin (0.2-1.0) mg/dL AST (15-37) U/L ALT (12-78) U/L Alkaline Phosphatase (46-116) U/L Total Protein (6.4-8.2) g/dL Albumin (3.4-5.0) g/dL Globulin (2.3-3.5) g/dL Albumin/Globulin Ratio (1.2-2.2) Urine Color Urine Appearance Urine pH (4.5-8.0) Ur Specific [place] (1.008-1.030) Urine Protein (NEGATIVE) mg/dL Urine Glucose (UA) (NEGATIVE) mg/dL Urine Ketones (NEGATIVE) mg/dL Urine Occult Blood (NEGATIVE) Urine Nitrite (NEGAITVE) Urine Bilirubin (NEGATIVE) Urine Urobilinogen (NORMAL) mg/dL Ur Leukocyte Esterase (NEGATIVE) Urine RBC (0-5) Urine WBC (0-5) Ur Epithelial Cells Amorphous Sediment Urine Bacteria Urine Mucus Salicylates (2.0-20.0) mg/dL Urine Opiates Screen (NEGATIVE) Ur Oxycodone Screen (NEGATIVE) Urine Methadone Screen (NEGATIVE) Ur Propoxyphene Screen (NEGATIVE) Acetaminophen (10.0-30.0) ug/mL Ur Barbiturates Screen (NEGATIVE) Valproic Acid 161.9 H 138.2 H (50.0-100.0) ug/mL Ur Tricyclics Screen (NEGATIVE) Ur Phencyclidine Scrn (NEGATIVE) Ur Amphetamine Screen (NEGATIVE) U Methamphetamines Scrn (NEGATIVE) Urine MDMA Screen (NEGATIVE) U Benzodiazepines Scrn (NEGATIVE) U Cocaine Metab Screen (NEGATIVE) U Marijuana (THC) Screen (NEGATIVE) Ethyl Alcohol mg/dL Med Orders - Current: Current Medications Acetaminophen (Tylenol) 650 mg PO Q4H PRN PRN Reason: Pain (Mild 1-3)/fever Magnesium Hydroxide (Milk Of Magnesia) 30 ml PO Q12H PRN PRN Reason: Constipation Magnesium Oxide (Magnesium Oxide) 400 mg PO BID MAHOGANY Ondansetron HCl (Zofran) 4 mg IV Q4H PRN PRN Reason: Nausea/Vomiting Polyethylene Glycol (Miralax) 17 gm PO DAILY PRN PRN Reason: Constipation Senna/Docusate Sodium (Senna Plus) 1 tab PO BID PRN PRN Reason: Constipation Sodium Chloride (Saline Flush) 10 ml FLUSH ASDIRECTED PRN PRN Reason: Keep Vein Open Discontinued Medications Charcoal (Actidose-Aqua) 25 gm PO ONETIME ONE Stop: 06/13/17 19:24 Last Admin: 06/13/17 19:47 Dose: 25 gm Charcoal (Actidose-Aqua) 25 gm PO ONETIME ONE Stop: 06/13/17 22:40 Last Admin: 06/13/17 22:48 Dose: 25 gm Charcoal/Sorbitol (Insta-Rhiannon Sorbitol) 25 gm PO NOW ONE Stop: 06/13/17 19:24 Last Admin: 06/13/17 19:45 Dose: 25 gm Charcoal/Sorbitol (Insta-Rhiannon Sorbitol) 25 gm PO ONETIME ONE Stop: 06/13/17 20:31 Last Admin: 06/13/17 20:40 Dose: 25 gm Lactated Ringer's (Ringers, Lactated) 1,000 mls @ 1,000 mls/hr IV BOLUS ONE Stop: 06/13/17 20:22 Last Admin: 06/13/17 19:47 Dose: 1,000 mls/hr Potassium Chloride/Sodium Chloride (Normal Saline With 20 Meq Kcl) 1,000 mls [facility] Admin: 06/13/17 20:52 Dose: 500 mls/hr Magnesium Sulfate 2 gm/ Premix 50 mls @ 12.5 mls/hr IV ONETIME ONE Stop: 06/14/17 00:25 Magnesium Sulfate 2 gm/ Premix 50 mls @ 50 mls/hr IV ONETIME ONE Stop: 06/13/17 21:25 Last Admin: 06/13/17 20:46 Dose: 50 mls/hr Magnesium Sulfate 2 gm/ Premix 50 mls @ 50 mls/hr IV ONETIME ONE Stop: 06/13/17 22:39 Last Admin: 06/13/17 21:38 Dose: 50 mls/hr Potassium Chloride/Sodium Chloride (Normal Saline With 20 Meq Kcl) 1,000 mls [facility] Admin: 06/13/17 23:29 Dose: 250 mls/hr Magnesium Sulfate 2 gm/ Premix 50 mls @ 25 mls/hr IV ONETIME ONE Stop: 06/14/17 07:59 Last Admin: 06/14/17 05:16 Dose: 25 mls/hr Potassium Chloride/Sodium Chloride (Normal Saline With 20 Meq Kcl) 1,000 mls @ 125 [facility] Last Admin: 06/14/17 03:23 Dose: 125 mls/hr Magnesium Oxide (Magnesium Oxide) 800 mg PO ONETIME ONE Stop: 06/14/17 00:14 Last Admin: 06/14/17 00:39 Dose: 800 mg Metoclopramide HCl (Reglan) 10 mg IVPUSH ONETIME ONE Stop: 04/02/18 19:25 Last Admin: 06/13/17 19:50 Dose: 10 mg Potassium Chloride (Klor-Con M20) 20 meq PO ONETIME ONE Stop: 06/14/17 00:15 Last Admin: 06/14/17 00:39 Dose: 20 meq Thiamine HCl (Vitamin B-1) 100 mg PO ONETIME ONE Stop: 06/13/17 20:43 Last Admin: 06/13/17 20:58 Dose: 100 mg - Exam Quality Assessment: DVT Prophylaxis General: Alert, Oriented, Cooperative, No Acute Distress Lungs: Clear to Auscultation, Normal Respiratory Effort Cardiovascular: Regular Rate, Regular Rhythm, No Murmurs GI/Abdominal Exam: Soft, Non-Tender, No Organomegaly, No Distention Extremities: Non-Tender, No Pedal Edema Skin: Warm, Dry, Intact - Problem List Review Problem List Initiated/Reviewed/Updated: Yes - My Orders Last 24 Hours: My Active Orders 06/14/17 01:41 Resuscitation Status Routine 06/14/17 02:13 Patient Status [ADT] Routine Cardiac Monitoring [RC] .As Directed Height and Weight [RC] DAILY Intake and Output [RC] QSHIFT Notify Provider Vital Signs [RC] ASDIRECTED Oxygen Therapy [RC] PRN Peripheral IV Care [RC] . DIRECTED Pulse Oximetry [RC] CONTINUOUS Up With Assistance [RC] ASDIRECTED Up to Chair [RC] QID VTE/DVT Education [RC] Per Unit Routine Vital Signs [RC] Q4H Acetaminophen [Tylenol] 650 mg PO Q4H PRN Docusate Sodium/Sennosides [Senna Plus] 1 tab PO BID PRN Magnesium Hydroxide [Milk of Magnesia] 30 ml PO Q12H PRN Ondansetron [Zofran] 4 mg IV Q4H PRN Polyethylene Glycol 3350 [MiraLAX] 17 gm PO DAILY PRN Sodium Chloride 0.9% [Saline Flush] 10 ml FLUSH ASDIRECTED PRN Peripheral IV Insertion Adult [OM.PC] Routine Sequential Compression Device [OM.PC] Per Unit Routine Suicide Precautions [OM.PC] Q15M 06/14/17 02:28 Suicide Precautions [OM.PC] Q15M 06/14/17 02:43 Suicide Precautions [OM.PC] Q15M 06/14/17 02:58 Suicide Precautions [OM.PC] Q15M 06/14/17 03:13 Suicide Precautions [OM.PC] Q15M 06/14/17 03:28 Suicide Precautions [OM.PC] Q15M 06/14/17 03:43 Suicide Precautions [OM.PC] Q15M 06/14/17 03:58 Suicide Precautions [OM.PC] Q15M 06/14/17 04:13 Suicide Precautions [OM.PC] Q15M 06/14/17 04:28 Suicide Precautions [OM.PC] Q15M 06/14/17 04:43 Suicide Precautions [OM.PC] Q15M 06/14/17 04:58 Suicide Precautions [OM.PC] Q15M 06/14/17 05:13 Suicide Precautions [OM.PC] Q15M 06/14/17 05:28 Suicide Precautions [OM.PC] Q15M 06/14/17 05:43 Suicide Precautions [OM.PC] Q15M 06/14/17 05:58 Suicide Precautions [OM.PC] Q15M 06/14/17 06:13 Suicide Precautions [OM.PC] Q15M 06/14/17 06:28 Suicide Precautions [OM.PC] Q15M 06/14/17 06:43 Suicide Precautions [OM.PC] Q15M 06/14/17 06:58 Suicide Precautions [OM.PC] Q15M 06/14/17 07:13 Suicide Precautions [OM.PC] Q15M 06/14/17 07:28 Suicide Precautions [OM.PC] Q15M 06/14/17 07:43 Suicide Precautions [OM.PC] Q15M 06/14/17 07:58 Suicide Precautions [OM.PC] Q15M 06/14/17 08:13 Suicide Precautions [OM.PC] Q15M 06/14/17 08:28 Suicide Precautions [OM.PC] Q15M 06/14/17 08:43 Suicide Precautions [OM.PC] Q15M 06/14/17 08:58 Suicide Precautions [OM.PC] Q15M 06/14/17 09:00 Magnesium Oxide 400 mg PO BID 06/14/17 09:13 Suicide Precautions [OM.PC] Q15M 06/14/17 09:28 Suicide Precautions [OM.PC] Q15M 06/14/17 09:43 Suicide Precautions [OM.PC] Q15M 06/14/17 09:58 VALPROIC ACID [CHEM] Routine Convert IV to Saline Lock [OM.PC] Routine Suicide Precautions [OM.PC] Q15M 06/14/17 10:13 Suicide Precautions [OM.PC] Q15M 06/14/17 10:28 Suicide Precautions [OM.PC] Q15M 06/14/17 10:43 Suicide Precautions [OM.PC] Q15M 06/14/17 10:58 Suicide Precautions [OM.PC] Q15M 06/14/17 11:13 Suicide Precautions [OM.PC] Q15M 06/14/17 11:28 Suicide Precautions [OM.PC] Q15M 06/14/17 11:43 Suicide Precautions [OM.PC] Q15M 06/14/17 11:58 Suicide Precautions [OM.PC] Q15M 06/14/17 12:13 Suicide Precautions [OM.PC] Q15M 06/14/17 12:28 Suicide Precautions [OM.PC] Q15M 06/14/17 12:43 Suicide Precautions [OM.PC] Q15M 06/14/17 12:58 Suicide Precautions [OM.PC] Q15M 06/14/17 13:13 Suicide Precautions [OM.PC] Q15M 06/14/17 13:28 Suicide Precautions [OM.PC] Q15M 06/14/17 13:43 Suicide Precautions [OM.PC] Q15M 06/14/17 13:58 Suicide Precautions [OM.PC] Q15M 06/14/17 14:13 Suicide Precautions [OM.PC] Q15M 06/14/17 14:28 Suicide Precautions [OM.PC] Q15M 06/14/17 14:43 Suicide Precautions [OM.PC] Q15M 06/14/17 14:58 Suicide Precautions [OM.PC] Q15M 06/14/17 15:13 Suicide Precautions [OM.PC] Q15M 06/14/17 15:28 Suicide Precautions [OM.PC] Q15M 06/14/17 15:43 Suicide Precautions [OM.PC] Q15M 06/14/17 15:58 Suicide Precautions [OM.PC] Q15M 06/14/17 16:13 Suicide Precautions [OM.PC] Q15M 06/14/17 16:28 Suicide Precautions [OM.PC] Q15M 06/14/17 16:43 Suicide Precautions [OM.PC] Q15M 06/14/17 16:58 Suicide Precautions [OM.PC] Q15M 06/14/17 17:13 Suicide Precautions [OM.PC] Q15M 06/14/17 17:28 Suicide Precautions [OM.PC] Q15M 06/14/17 17:43 Suicide Precautions [OM.PC] Q15M 06/14/17 17:58 Suicide Precautions [OM.PC] Q15M 06/14/17 18:13 Suicide Precautions [OM.PC] Q15M 06/14/17 18:28 Suicide Precautions [OM.PC] Q15M 06/14/17 18:43 Suicide Precautions [OM.PC] Q15M 06/14/17 18:58 Suicide Precautions [OM.PC] Q15M 06/14/17 19:13 Suicide Precautions [OM.PC] Q15M 06/14/17 19:28 Suicide Precautions [OM.PC] Q15M 06/14/17 19:43 Suicide Precautions [OM.PC] Q15M 06/14/17 19:58 Suicide Precautions [OM.PC] Q15M 06/14/17 20:13 Suicide Precautions [OM.PC] Q15M 06/14/17 20:28 Suicide Precautions [OM.PC] Q15M 06/14/17 20:43 Suicide Precautions [OM.PC] Q15M 06/14/17 20:58 Suicide Precautions [OM.PC] Q15M 06/14/17 21:13 Suicide Precautions [OM.PC] Q15M 06/14/17 21:28 Suicide Precautions [OM.PC] Q15M 06/14/17 21:43 Suicide Precautions [OM.PC] Q15M 06/14/17 21:58 Suicide Precautions [OM.PC] Q15M 06/14/17 22:13 Suicide Precautions [OM.PC] Q15M 06/14/17 22:28 Suicide Precautions [OM.PC] Q15M 06/14/17 22:43 Suicide Precautions [OM.PC] Q15M 06/14/17 22:58 Suicide Precautions [OM.PC] Q15M 06/14/17 23:13 Suicide Precautions [OM.PC] Q15M 06/14/17 23:28 Suicide Precautions [OM.PC] Q15M 06/14/17 23:43 Suicide Precautions [OM.PC] Q15M 06/14/17 23:58 Suicide Precautions [OM.PC] Q15M 06/14/17 Breakfast Regular Diet [DIET] 06/15/17 00:13 Suicide Precautions [OM.PC] Q15M 06/15/17 00:28 Suicide Precautions [OM.PC] Q15M 06/15/17 00:43 Suicide Precautions [OM.PC] Q15M 06/15/17 00:58 Suicide Precautions [OM.PC] Q15M 06/15/17 01:13 Suicide Precautions [OM.PC] Q15M 06/15/17 01:28 Suicide Precautions [OM.PC] Q15M 06/15/17 01:43 Suicide Precautions [OM.PC] Q15M 06/15/17 01:58 Suicide Precautions [OM.PC] Q15M 06/15/17 02:13 Suicide Precautions [OM.PC] Q15M 06/15/17 02:28 Suicide Precautions [OM.PC] Q15M 06/15/17 02:43 Suicide Precautions [OM.PC] Q15M 06/15/17 02:58 Suicide Precautions [OM.PC] Q15M 06/15/17 03:13 Suicide Precautions [OM.PC] Q15M 06/15/17 03:28 Suicide Precautions [OM.PC] Q15M 06/15/17 03:43 Suicide Precautions [OM.PC] Q15M 06/15/17 03:58 Suicide Precautions [OM.PC] Q15M 06/15/17 04:13 Suicide Precautions [OM.PC] Q15M 06/15/17 04:28 Suicide Precautions [OM.PC] Q15M 06/15/17 04:43 Suicide Precautions [OM.PC] Q15M 06/15/17 04:58 Suicide Precautions [OM.PC] Q15M 06/15/17 05:00 BASIC METABOLIC PANEL,BMP [CHEM] Timed VALPROIC ACID [CHEM] Routine 06/15/17 05:13 Suicide Precautions [OM.PC] Q15M 06/15/17 05:28 Suicide Precautions [OM.PC] Q15M 06/15/17 05:43 Suicide Precautions [OM.PC] Q15M 06/15/17 05:58 Suicide Precautions [OM.PC] Q15M 06/15/17 06:13 Suicide Precautions [OM.PC] Q15M 06/15/17 06:28 Suicide Precautions [OM.PC] Q15M 06/15/17 06:43 Suicide Precautions [OM.PC] Q15M 06/15/17 06:58 Suicide Precautions [OM.PC] Q15M 06/15/17 07:13 Suicide Precautions [OM.PC] Q15M 06/15/17 07:28 Suicide Precautions [OM.PC] Q15M 06/15/17 07:43 Suicide Precautions [OM.PC] Q15M 06/15/17 07:58 Suicide Precautions [OM.PC] Q15M 06/15/17 08:13 Suicide Precautions [OM.PC] Q15M 06/15/17 08:28 Suicide Precautions [OM.PC] Q15M 06/15/17 08:43 Suicide Precautions [OM.PC] Q15M 06/15/17 08:58 Suicide Precautions [OM.PC] Q15M 06/15/17 09:13 Suicide Precautions [OM.PC] Q15M 06/15/17 09:28 Suicide Precautions [OM.PC] Q15M 06/15/17 09:43 Suicide Precautions [OM.PC] Q15M 06/15/17 09:58 Suicide Precautions [OM.PC] Q15M 06/15/17 10:13 Suicide Precautions [OM.PC] Q15M 06/15/17 10:28 Suicide Precautions [OM.PC] Q15M 06/15/17 10:43 Suicide Precautions [OM.PC] Q15M 06/15/17 10:58 Suicide Precautions [OM.PC] Q15M 06/15/17 11:13 Suicide Precautions [OM.PC] Q15M 06/15/17 11:28 Suicide Precautions [OM.PC] Q15M 06/15/17 11:43 Suicide Precautions [OM.PC] Q15M 06/15/17 11:58 Suicide Precautions [OM.PC] Q15M 06/15/17 12:13 Suicide Precautions [OM.PC] Q15M - Plan Plan:: ASSESSMENT AND PLAN INTENTIONAL DRUG OVERDOSE, SUICIDE ATTEMPT-reports feeling depressed and suicidal over the past few weeks. Stable since admission, valproic acid level remains elevated above therapeutic range -ICU admission - cardiac monitoring -repeat valproic acid level in a.m. -suicide precautions, monitor every 15 minutes -transfer to inpatient psychiatric facility when medically stable HYPOMAGNESEMIA-resolved HYPOKALEMIA-resolved -recheck potassium level in a.m. MAINTENANCE ISSUES -DVT prophylaxis; SCUDs -GI prophylaxis; not indicated -Henriquez catheter; not required -Nutrition;Regular diet -Nicotine dependence; not required CODE STATUS- FULL CODE ADMISSION STATUS-patient will be admitted to inpatient status, expect at least a 2 night hospital stay for evaluation and management of problems as outlined above. At the time of this admission I do not reasonably expected evaluation and management of this problem will require more than a 96 hour hospital stay. DISPOSITION-anticipate discharge to home after the hospital stay. PRIMARY CARE PROVIDER-Fausto Sweet
[2017-06-15] MEDS: Magnesium Oxide 400 MG Tab PO SCH ×3 (07:54→20:54)
--- NOTE | 2017-06-15 09:49 | PCM.PN ---
- General Info Date of Service: 06/15/17 Subjective Update: Mr. Rubio has been stable over the past 24 hours, continues to report depression and suicidal ideation. He has been hemodynamically stable with no significant cardiac dysrhythmias. Valproic acid level remains mildly elevated at 106. - Review of Systems General: Reports: No Symptoms Pulmonary: Reports: No Symptoms Cardiovascular: Reports: No Symptoms Gastrointestinal: Reports: No Symptoms - Patient Data Vitals - Most Recent: Last Vital Signs Temp 97.2 F 06/15/17 07:48 Pulse 65 06/15/17 07:48 Resp 10 L 06/15/17 07:48 BP 143/72 H 06/15/17 07:48 Pulse Ox 100 06/15/17 07:48 Weight - Most Recent: 168 lb 9.611 oz I&O - Last 24 Hours: Intake & Output 06/14/17 06/15/17 06/15/17 22:59 06:59 14:59 Intake Total 600 480 Output Total 1700 700 Balance -1100 -220 Lab Results Last 24 Hours: Laboratory Results - last 24 hr 06/15/17 Range/Units 06:07 Sodium 137 L (140-148) mmol/L Potassium 4.3 (3.6-5.2) mmol/L Chloride 104 (100-108) mmol/L Carbon Dioxide 28 (21-32) mmol/L Anion Gap 9.3 (5.0-14.0) mmol/L BUN 11 D (7-18) mg/dL Creatinine 0.9 (0.8-1.3) mg/dL Est Cr Clr Drug Dosing 109.76 mL/min Estimated GFR (MDRD) > 60 (>60) Glucose 91 (74-106) mg/dL Calcium 8.6 (8.5-10.1) mg/dL Valproic Acid 106.2 H (50.0-100.0) ug/mL Med Orders - Current: Current Medications Acetaminophen (Tylenol) 650 mg PO Q4H PRN PRN Reason: Pain (Mild 1-3)/fever Magnesium Hydroxide (Milk Of Magnesia) 30 ml PO Q12H PRN PRN Reason: Constipation Magnesium Oxide (Magnesium Oxide) 400 mg PO BID [facility] Last Admin: 06/15/17 08:01 Dose: Not Given Ondansetron HCl (Zofran) 4 mg IV Q4H PRN PRN Reason: Nausea/Vomiting Polyethylene Glycol (Miralax) 17 gm PO DAILY PRN PRN Reason: Constipation Senna/Docusate Sodium (Senna Plus) 1 tab PO BID PRN PRN Reason: Constipation Sodium Chloride (Saline Flush) 10 ml FLUSH ASDIRECTED PRN PRN Reason: Keep Vein Open Discontinued Medications Charcoal (Actidose-Aqua) 25 gm PO ONETIME ONE Stop: 06/13/17 19:24 Last Admin: 06/13/17 19:47 Dose: 25 gm Charcoal (Actidose-Aqua) 25 gm PO ONETIME ONE Stop: 06/13/17 22:40 Last Admin: 06/13/17 22:48 Dose: 25 gm Charcoal/Sorbitol (Insta-Rhiannon Sorbitol) 25 gm PO NOW ONE Stop: 06/13/17 19:24 Last Admin: 06/13/17 19:45 Dose: 25 gm Charcoal/Sorbitol (Insta-Rhiannon Sorbitol) 25 gm PO ONETIME ONE Stop: 06/13/17 20:31 Last Admin: 06/13/17 20:40 Dose: 25 gm Lactated Ringer's (Ringers, Lactated) 1,000 mls @ 1,000 mls/hr IV BOLUS ONE Stop: 06/13/17 20:22 Last Admin: 06/13/17 19:47 Dose: 1,000 mls/hr Potassium Chloride/Sodium Chloride (Normal Saline With 20 Meq Kcl) 1,000 mls @ 500 mls/hr IV ASDIRECTED [facility] Last Admin: 06/13/17 20:52 Dose: 500 mls/hr Magnesium Sulfate 2 gm/ Premix 50 mls @ 12.5 mls/hr IV ONETIME ONE Stop: 06/14/17 00:25 Last Admin: 06/14/17 10:56 Dose: Not Given Magnesium Sulfate 2 gm/ Premix 50 mls @ 50 mls/hr IV ONETIME ONE Stop: 06/13/17 21:25 Last Admin: 06/13/17 20:46 Dose: 50 mls/hr Magnesium Sulfate 2 gm/ Premix 50 mls @ 50 mls/hr IV ONETIME ONE Stop: 06/13/17 22:39 Last Admin: 06/13/17 21:38 Dose: 50 mls/hr Potassium Chloride/Sodium Chloride (Normal Saline With 20 Meq Kcl) 1,000 mls @ 250 mls/hr IV ASDIRECTED [facility] Last Admin: 06/13/17 23:29 Dose: 250 mls/hr Magnesium Sulfate 2 gm/ Premix 50 mls @ 25 mls/hr IV ONETIME ONE Stop: 06/14/17 07:59 Last Admin: 06/14/17 05:16 Dose: 25 mls/hr Potassium Chloride/Sodium Chloride (Normal Saline With 20 Meq Kcl) 1,000 mls @ 125 mls/hr IV ASDIRECTED [facility] Last Admin: 06/14/17 03:23 Dose: 125 mls/hr Magnesium Oxide (Magnesium Oxide) 800 mg PO ONETIME ONE Stop: 06/14/17 00:14 Last Admin: 06/14/17 00:39 Dose: 800 mg Metoclopramide HCl (Reglan) 10 mg IVPUSH ONETIME ONE Stop: 06/13/17 19:25 Last Admin: 06/13/17 19:50 Dose: 10 mg Potassium Chloride (Klor-Con M20) 20 meq PO ONETIME ONE Stop: 06/14/17 00:15 Last Admin: 06/14/17 00:39 Dose: 20 meq Thiamine HCl (Vitamin B-1) 100 mg PO ONETIME ONE Stop: 06/13/17 20:43 Last Admin: 06/13/17 20:58 Dose: 100 mg - Exam Quality Assessment: Supplemental Oxygen, DVT Prophylaxis General: Alert, Oriented, Cooperative Lungs: Clear to Auscultation, Normal Respiratory Effort Cardiovascular: Regular Rate, Regular Rhythm, No Murmurs GI/Abdominal Exam: Soft, Non-Tender, No Organomegaly, No Distention Extremities: Non-Tender, No Pedal Edema Skin: Warm, Dry, Intact - Problem List Review Problem List Initiated/Reviewed/Updated: Yes - My Orders Last 24 Hours: My Active Orders 06/14/17 08:58 Suicide Precautions [OM.PC] Q15M 06/14/17 09:00 Magnesium Oxide 400 mg PO BID 06/14/17 09:13 Suicide Precautions [OM.PC] Q15M 06/14/17 09:28 Suicide Precautions [OM.PC] Q15M 06/14/17 09:43 Suicide Precautions [OM.PC] Q15M 06/14/17 09:58 Convert IV to Saline Lock [OM.PC] Routine Suicide Precautions [OM.PC] Q15M 06/14/17 10:13 Suicide Precautions [OM.PC] Q15M 06/14/17 10:28 Suicide Precautions [OM.PC] Q15M 06/14/17 10:43 Suicide Precautions [OM.PC] Q15M 06/14/17 10:58 Suicide Precautions [OM.PC] Q15M 06/14/17 11:13 Suicide Precautions [OM.PC] Q15M 06/14/17 11:28 Suicide Precautions [OM.PC] Q15M 06/14/17 11:43 Suicide Precautions [OM.PC] Q15M 06/14/17 11:58 Suicide Precautions [OM.PC] Q15M 06/14/17 12:13 Suicide Precautions [OM.PC] Q15M 06/14/17 12:28 Suicide Precautions [OM.PC] Q15M 06/14/17 12:43 Suicide Precautions [OM.PC] Q15M 06/14/17 12:58 Suicide Precautions [OM.PC] Q15M 06/14/17 13:13 Suicide Precautions [OM.PC] Q15M 06/14/17 13:28 Suicide Precautions [OM.PC] Q15M 06/14/17 13:43 Suicide Precautions [OM.PC] Q15M 06/14/17 13:58 Suicide Precautions [OM.PC] Q15M 06/14/17 14:13 Suicide Precautions [OM.PC] Q15M 06/14/17 14:28 Suicide Precautions [OM.PC] Q15M 06/14/17 14:43 Suicide Precautions [OM.PC] Q15M 06/14/17 14:58 Suicide Precautions [OM.PC] Q15M 06/14/17 15:13 Suicide Precautions [OM.PC] Q15M 06/14/17 15:28 Suicide Precautions [OM.PC] Q15M 06/14/17 15:43 Suicide Precautions [OM.PC] Q15M 06/14/17 15:58 Suicide Precautions [OM.PC] Q15M 06/14/17 16:13 Suicide Precautions [OM.PC] Q15M 06/14/17 16:28 Suicide Precautions [OM.PC] Q15M 06/14/17 16:43 Suicide Precautions [OM.PC] Q15M 06/14/17 16:58 Suicide Precautions [OM.PC] Q15M 06/14/17 17:13 Suicide Precautions [OM.PC] Q15M 06/14/17 17:28 Suicide Precautions [OM.PC] Q15M 06/14/17 17:43 Suicide Precautions [OM.PC] Q15M 06/14/17 17:58 Suicide Precautions [OM.PC] Q15M 06/14/17 18:13 Suicide Precautions [OM.PC] Q15M 06/14/17 18:28 Suicide Precautions [OM.PC] Q15M 06/14/17 18:43 Suicide Precautions [OM.PC] Q15M 06/14/17 18:58 Suicide Precautions [OM.PC] Q15M 06/14/17 19:13 Suicide Precautions [OM.PC] Q15M 06/14/17 19:28 Suicide Precautions [OM.PC] Q15M 06/14/17 19:43 Suicide Precautions [OM.PC] Q15M 06/14/17 19:58 Suicide Precautions [OM.PC] Q15M 06/14/17 20:13 Suicide Precautions [OM.PC] Q15M 06/14/17 20:28 Suicide Precautions [OM.PC] Q15M 06/14/17 20:43 Suicide Precautions [OM.PC] Q15M 06/14/17 20:58 Suicide Precautions [OM.PC] Q15M 06/14/17 21:13 Suicide Precautions [OM.PC] Q15M 06/14/17 21:28 Suicide Precautions [OM.PC] Q15M 06/14/17 21:43 Suicide Precautions [OM.PC] Q15M 06/14/17 21:58 Suicide Precautions [OM.PC] Q15M 06/14/17 22:13 Suicide Precautions [OM.PC] Q15M 06/14/17 22:28 Suicide Precautions [OM.PC] Q15M 06/14/17 22:43 Suicide Precautions [OM.PC] Q15M 06/14/17 22:58 Suicide Precautions [OM.PC] Q15M 06/14/17 23:13 Suicide Precautions [OM.PC] Q15M 06/14/17 23:28 Suicide Precautions [OM.PC] Q15M 06/14/17 23:43 Suicide Precautions [OM.PC] Q15M 06/14/17 23:58 Suicide Precautions [OM.PC] Q15M 06/15/17 00:13 Suicide Precautions [OM.PC] Q15M 06/15/17 00:28 Suicide Precautions [OM.PC] Q15M 06/15/17 00:43 Suicide Precautions [OM.PC] Q15M 06/15/17 00:58 Suicide Precautions [OM.PC] Q15M 06/15/17 01:13 Suicide Precautions [OM.PC] Q15M 06/15/17 01:28 Suicide Precautions [OM.PC] Q15M 06/15/17 01:43 Suicide Precautions [OM.PC] Q15M 06/15/17 01:58 Suicide Precautions [OM.PC] Q15M 06/15/17 02:13 Suicide Precautions [OM.PC] Q15M 06/15/17 02:28 Suicide Precautions [OM.PC] Q15M 06/15/17 02:43 Suicide Precautions [OM.PC] Q15M 06/15/17 02:58 Suicide Precautions [OM.PC] Q15M 06/15/17 03:13 Suicide Precautions [OM.PC] Q15M 06/15/17 03:28 Suicide Precautions [OM.PC] Q15M 06/15/17 03:43 Suicide Precautions [OM.PC] Q15M 06/15/17 03:58 Suicide Precautions [OM.PC] Q15M 06/15/17 04:13 Suicide Precautions [OM.PC] Q15M 06/15/17 04:28 Suicide Precautions [OM.PC] Q15M 06/15/17 04:43 Suicide Precautions [OM.PC] Q15M 06/15/17 04:58 Suicide Precautions [OM.PC] Q15M 06/15/17 05:13 Suicide Precautions [OM.PC] Q15M 06/15/17 05:28 Suicide Precautions [OM.PC] Q15M 06/15/17 05:43 Suicide Precautions [OM.PC] Q15M 06/15/17 05:58 Suicide Precautions [OM.PC] Q15M 06/15/17 06:13 Suicide Precautions [OM.PC] Q15M 06/15/17 06:28 Suicide Precautions [OM.PC] Q15M 06/15/17 06:43 Suicide Precautions [OM.PC] Q15M 06/15/17 06:58 Suicide Precautions [OM.PC] Q15M 06/15/17 07:13 Suicide Precautions [OM.PC] Q15M 06/15/17 07:28 Suicide Precautions [OM.PC] Q15M 06/15/17 07:43 Suicide Precautions [OM.PC] Q15M 06/15/17 07:58 Suicide Precautions [OM.PC] Q15M 06/15/17 08:13 Suicide Precautions [OM.PC] Q15M 06/15/17 08:28 Suicide Precautions [OM.PC] Q15M 06/15/17 08:43 Suicide Precautions [OM.PC] Q15M 06/15/17 08:58 Suicide Precautions [OM.PC] Q15M 06/15/17 09:13 Suicide Precautions [OM.PC] Q15M 06/15/17 09:28 Suicide Precautions [OM.PC] Q15M 06/15/17 09:43 Suicide Precautions [OM.PC] Q15M 06/15/17 09:58 Suicide Precautions [OM.PC] Q15M 06/15/17 10:13 Suicide Precautions [OM.PC] Q15M 06/15/17 10:28 Suicide Precautions [OM.PC] Q15M 06/15/17 10:43 Suicide Precautions [OM.PC] Q15M 06/15/17 10:58 Suicide Precautions [OM.PC] Q15M 06/15/17 11:13 Suicide Precautions [OM.PC] Q15M 06/15/17 11:28 Suicide Precautions [OM.PC] Q15M 06/15/17 11:43 Suicide Precautions [OM.PC] Q15M 06/15/17 11:58 Suicide Precautions [OM.PC] Q15M 06/15/17 12:13 Suicide Precautions [OM.PC] Q15M 06/16/17 05:11 VALPROIC ACID [CHEM] AM - Plan Plan:: ASSESSMENT AND PLAN INTENTIONAL DRUG OVERDOSE, SUICIDE ATTEMPT-reports feeling depressed and suicidal over the past few weeks. Stable since admission, valproic acid level remains elevated above therapeutic range -ICU admission - cardiac monitoring -repeat valproic acid level in a.m. -suicide precautions, monitor every 15 minutes -transfer to inpatient psychiatric facility when medically stable HYPOMAGNESEMIA-resolved HYPOKALEMIA-resolved -recheck potassium level in a.m. MAINTENANCE ISSUES -DVT prophylaxis; SCUDs -GI prophylaxis; not indicated -Henriquez catheter; not required -Nutrition;Regular diet -Nicotine dependence; not required CODE STATUS- FULL CODE ADMISSION STATUS-patient will be admitted to inpatient status, expect at least a 2 night hospital stay for evaluation and management of problems as outlined above. At the time of this admission I do not reasonably expected evaluation and management of this problem will require more than a 96 hour hospital stay. DISPOSITION-anticipate discharge to home after the hospital stay. PRIMARY CARE PROVIDER-Fausto Sweet
[2017-06-16] MEDS ORDERED: Pramipexole 0.25 MG Tab PO PRN (08:21)
[2017-06-16] MEDS: Magnesium Oxide 400 MG Tab PO SCH (08:55)
[2017-06-16] MEDS ORDERED: Divalproex Sodium 250 MG Tab.ER PO SCH (09:00)
--- NOTE | 2017-06-16 09:40 | PCM.DCSUM1 ---
Discharge Summary - Hospital Course Brief History: Mr. Rubio is a 47-year-old gentleman who presented to the emergency department with alcohol intoxication and intentional drug overdose in a suicide attempt. - Discharge Data Discharge Date: 06/16/17 Discharge Disposition: DC/Tfer to Psych Hosp/Unit 65 Condition: Poor - Discharge Diagnosis/Problem(s) (1) Alcohol intoxication SNOMED Code(s): 80849186 ICD Code: F10.929 - ALCOHOL USE, UNSPECIFIED WITH INTOXICATION, UNSPECIFIED Status: Acute Current Visit: Yes Qualifiers: Complication of substance-induced condition: with unspecified complication Qualified Code(s): F10.929 - Alcohol use, unspecified with intoxication, unspecified (2) Suicide attempt SNOMED Code(s): 76494959 ICD Code: T14.91XA - SUICIDE ATTEMPT, INITIAL ENCOUNTER Status: Acute Current Visit: Yes (3) Acute drug overdose SNOMED Code(s): 30465600 ICD Code: T50.901A - POISONING BY UNSP DRUG/MEDS/BIOL SUBST, ACCIDENTAL, INIT Status: Acute Current Visit: Yes Qualifiers: Encounter type: initial encounter Injury intent: intentional self-harm Qualified Code(s): T50.902A - Poisoning by unspecified drugs, medicaments and biological substances, intentional self-harm, initial encounter (4) Schizo affective schizophrenia SNOMED Code(s): 435066316 ICD Code: F25.0 - SCHIZOAFFECTIVE DISORDER, BIPOLAR TYPE Status: Chronic Current Visit: No - Patient Summary/Data Hospital Course: Mr. Rubio is a 47-year-old gentleman who was admitted through the emergency department after an intentional drug overdose in a suicide attempt. He admits that he is been feeling depressed and thinking about suicide for some time. Things came to a head today when he consumed a large amount of vodka and took an overdose of valproic acid. Specific amount is unknown, possibly up to 49, 500 mg tablets. He also apparently took some Mirapex and possibly a another drug. Poison control was contacted, he received activated charcoal. They have recommended admission for monitoring. He was also found to have hypokalemia and severe hypomagnesemia. He was admitted to the hospital and given IV fluids for hydration as well as vigorous magnesium and potassium replacement. He was placed on suicide precautions and monitored in the intensive care unit. Valproic acid level was found to be supratherapeutic and was monitored until the morning of transfer when the level was found to be within therapeutic range at 55. He continued to report symptoms of depression as well as suicidal ideation. He had no significant cardiac dysrhythmias and his magnesium and potassium levels were corrected prior to discharge. Activity will be as tolerated and he will resume his usual diet. He will be discharged to inpatient psychiatric facility for further evaluation and management. - Patient Instructions Diet: Usual Diet as Tolerated Activity: As Tolerated Other/Special Instructions: Patient will be transferred to inpatient psychiatric facility for further evaluation and management. - Discharge Plan Home Medications: Home Meds Divalproex Sodium [Depakote ER] 1,000 mg PO DAILY 12/22/14 [History] Pramipexole Di-HCl [Mirapex] 0.25 mg PO BID PRN 06/13/17 [History] - Discharge Summary/Plan Comment DC Time >30 min.: No - Patient Data Vitals - Most Recent: Last Vital Signs Temp 97.8 F 06/16/17 07:00 Pulse 77 06/16/17 07:00 Resp 16 06/16/17 07:00 BP 125/68 06/16/17 07:00 Pulse Ox 98 06/16/17 07:00 Weight - Most Recent: 168 lb 9.611 oz I&O - Last 24 hours: Intake & Output 06/15/17 06/16/17 06/16/17 22:59 06:59 14:59 Intake Total 800 240 0 Output Total 400 1200 Balance 400 -960 0 Lab Results - Last 24 hrs: Laboratory Results - last 24 hr 06/16/17 Range/Units 04:45 Valproic Acid 55.4 (50.0-100.0) ug/mL Med Orders - Current: Current Medications Acetaminophen (Tylenol) 650 mg PO Q4H PRN PRN Reason: Pain (Mild 1-3)/fever Divalproex Sodium (Depakote Er) 1,000 mg PO DAILY [facility] Last Admin: 06/16/17 08:55 Dose: 1,000 mg Magnesium Hydroxide (Milk Of Magnesia) 30 ml PO Q12H PRN PRN Reason: Constipation Magnesium Oxide (Magnesium Oxide) 400 mg PO BID [facility] Last Admin: 06/16/17 08:55 Dose: 400 mg Ondansetron HCl (Zofran) 4 mg IV Q4H PRN PRN Reason: Nausea/Vomiting Polyethylene Glycol (Miralax) 17 gm PO DAILY PRN PRN Reason: Constipation Pramipexole Dihydrochloride (Mirapex) 0.25 mg PO BID PRN PRN Reason: Anxiety Senna/Docusate Sodium (Senna Plus) 1 tab PO BID PRN PRN Reason: Constipation Sodium Chloride (Saline Flush) 10 ml FLUSH ASDIRECTED PRN PRN Reason: Keep Vein Open Discontinued Medications Charcoal (Actidose-Aqua) 25 gm PO ONETIME ONE Stop: 06/13/17 19:24 Last Admin: 06/13/17 19:47 Dose: 25 gm Charcoal (Actidose-Aqua) 25 gm PO ONETIME ONE Stop: 06/13/17 22:40 Last Admin: 06/13/17 22:48 Dose: 25 gm Charcoal/Sorbitol (Insta-Rhiannon Sorbitol) 25 gm PO NOW ONE Stop: 06/13/17 19:24 Last Admin: 06/13/17 19:45 Dose: 25 gm Charcoal/Sorbitol (Insta-Rhiannon Sorbitol) 25 gm PO ONETIME ONE Stop: 06/13/17 20:31 Last Admin: 06/13/17 20:40 Dose: 25 gm Lactated Ringer's (Ringers, Lactated) 1,000 mls @ 1,000 mls/hr IV BOLUS ONE Stop: 06/13/17 20:22 Last Admin: 06/13/17 19:47 Dose: 1,000 mls/hr Potassium Chloride/Sodium Chloride (Normal Saline With 20 Meq Kcl) 1,000 mls @ 500 mls/hr IV ASDIRECTED [facility] Last Admin: 06/13/17 20:52 Dose: 500 mls/hr Magnesium Sulfate 2 gm/ Premix 50 mls @ 12.5 mls/hr IV ONETIME ONE Stop: 06/14/17 00:25 Last Admin: 06/14/17 10:56 Dose: Not Given Magnesium Sulfate 2 gm/ Premix 50 mls @ 50 mls/hr IV ONETIME ONE Stop: 06/13/17 21:25 Last Admin: 06/13/17 20:46 Dose: 50 mls/hr Magnesium Sulfate 2 gm/ Premix 50 mls @ 50 mls/hr IV ONETIME ONE Stop: 06/13/17 22:39 Last Admin: 06/13/17 21:38 Dose: 50 mls/hr Potassium Chloride/Sodium Chloride (Normal Saline With 20 Meq Kcl) 1,000 mls @ 250 mls/hr IV ASDIRECTED [facility] Last Admin: 06/13/17 23:29 Dose: 250 mls/hr Magnesium Sulfate 2 gm/ Premix 50 mls @ 25 mls/hr IV ONETIME ONE Stop: 06/14/17 07:59 Last Admin: 06/14/17 05:16 Dose: 25 mls/hr Potassium Chloride/Sodium Chloride (Normal Saline With 20 Meq Kcl) 1,000 mls @ 125 mls/hr IV ASDIRECTED [facility] Last Admin: 06/14/17 03:23 Dose: 125 mls/hr Magnesium Oxide (Magnesium Oxide) 800 mg PO ONETIME ONE Stop: 06/14/17 00:14 Last Admin: 06/14/17 00:39 Dose: 800 mg Metoclopramide HCl (Reglan) 10 mg IVPUSH ONETIME ONE Stop: 06/13/17 19:25 Last Admin: 06/13/17 19:50 Dose: 10 mg Potassium Chloride (Klor-Con M20) 20 meq PO ONETIME ONE Stop: 06/14/17 00:15 Last Admin: 06/14/17 00:39 Dose: 20 meq Thiamine HCl (Vitamin B-1) 100 mg PO ONETIME ONE Stop: 06/13/17 20:43 Last Admin: 06/13/17 20:58 Dose: 100 mg - Exam General: Reports: Alert, Oriented, Cooperative Lungs: Reports: Clear to Auscultation, Normal Respiratory Effort Cardiovascular: Reports: Regular Rate, Regular Rhythm, No Murmurs GI/Abdominal Exam: Soft, Non-Tender, No Organomegaly, No Distention Extremities: Non-Tender, No Pedal Edema Psy/Mental Status: Reports: Depressed, Suicidal Ideation
[2017-06-16 12:44] VITALS: BP 105/52
== END 2017-06-16 15:45 | DRG 914 ==
LOC: JP.ED 19:22 → JP.ICU 06-14 01:40
PROVIDERS: ADMIT Hospitalist; ATTEND Hospitalist
DX: T14.91XA Suicide attempt, initial encounter (principal); T42.8X2A Poisoning by antiparkinsonism drugs and other central muscle-tone depressants, intentional self-harm, initial encounter; T42.6X2A Poisoning by other antiepileptic and sedative-hypnotic drugs, intentional self-harm, initial encounter; T51.0X2A Toxic effect of ethanol, intentional self-harm, initial encounter; E87.6 Hypokalemia; E83.42 Hypomagnesemia; Y92.9 Unspecified place or not applicable; F12.90 Cannabis use, unspecified, uncomplicated; F17.210 Nicotine dependence, cigarettes, uncomplicated; F15.11 Other stimulant abuse, in remission; F25.0 Schizoaffective disorder, bipolar type; F10.129 Alcohol abuse with intoxication, unspecified; Z86.73 Personal history of transient ischemic attack (TIA), and cerebral infarction without residual deficits; F32.9 Major depressive disorder, single episode, unspecified; Y90.4 Blood alcohol level of 80-99 mg/100 ml; H54.7 Unspecified visual loss; H91.90 Unspecified hearing loss, unspecified ear; Z88.1 Allergy status to other antibiotic agents
CPT/HCPCS: 36415; 80053; 80164 ×2; 80305; 81001; 83735; 85027; 96361; 96365; 96366; 96375; 99284; 99285; A9270 ×3; G0480 ×3; J2765; J3475 ×2; J3480 ×2; J7120; 80048; 93005

== ENCOUNTER 2019-04-14 10:10 | Emergency (ER) | payer MEDICARE, OTHER, SELFPAY ==
[2019-04-14 11:06] VITALS: BP 154/84; PULSE 71
--- NOTE | 2019-04-14 11:08 | EDM.PDOC ---
ED HPI GENERAL MEDICAL PROBLEM - General Chief Complaint: General Stated Complaint: HEALTH CONCERNS... Time Seen by Provider: 04/14/19 11:20 Source of Information: Reports: Patient, Family History Limitations: Reports: Other (Patient is acutely but mildly delusional due to untreated schizophrenia) - History of Present Illness INITIAL COMMENTS - FREE TEXT/NARRATIVE: 49-year-old male who comes in with a variety of strange complaints such as problems with his bowels, poisoning of his water at home, and inability to have bowel movements. He has no pain, no urinary symptoms, no nausea or vomiting. He has been hospitalized for schizophrenia exacerbation 4 times with 1 suicidal attempt over the past year alone. He is accompanied by his mother who is very concerned that his untreated schizophrenia is worsening and his bipolar disease is also becoming more labile. He is not suicidal at this time, but is willing to get help. He is not willing to take medication however which is obviously part of his delusional state. Onset: Unknown/Unsure Duration: Chronic Associated Symptoms: Denies: Chest Pain, Cough, Nausea/Vomiting, Shortness of Breath, Weakness - Related Data Allergies Allergy/AdvReac Type Severity Reaction Status Date / Time erythromycin base AdvReac Stomach Verified 04/14/19 11:24 Upset Past Medical History HEENT History: Reports: Hard of Hearing, Impaired Vision Other HEENT History: Upper and lower dentures unable to wear bottom Musculoskeletal History: Reports: Fracture Neurological History: Reports: TIA Psychiatric History: Reports: Anxiety, Depression, Panic Attack, Psych Hospitalization(s), Psychosis, Schizophrenia, Suicide Attempt, Suicidal Ideation Other Psychiatric History: anger issues, shizoeffective disorder - Infectious Disease History Infectious Disease History: Reports: Chicken Pox - Past Surgical History HEENT Surgical History: Reports: Myringotomy w Tube(s) Social & Family History - Caffeine Use Caffeine Use: Reports: Coffee, Soda ED ROS GENERAL - Review of Systems Review Of Systems: See Below Constitutional: Reports: Malaise. Denies: Fever, Chills HEENT: Reports: No Symptoms Respiratory: Denies: Shortness of Breath Cardiovascular: Denies: Chest Pain GI/Abdominal: Reports: Constipation. Denies: Abdominal Pain, Nausea, Vomiting : Reports: No Symptoms Musculoskeletal: Reports: No Symptoms ED EXAM, GENERAL - Physical Exam Exam: See Below Exam Limited By: No Limitations General Appearance: Alert, No Apparent Distress Eye Exam: Bilateral Eye: Normal Inspection Head: Atraumatic Neck: Supple, Non-Tender Respiratory/Chest: No Respiratory Distress, Lungs Clear Cardiovascular: Regular Rate, Rhythm GI/Abdominal: Normal Bowel Sounds, Soft, Non-Tender Extremities: Normal Inspection Neurological: Alert, Oriented, No Motor/Sensory Deficits Psychiatric: Normal Affect, Normal Mood Skin Exam: Warm, Dry Course - Vital Signs Last Recorded V/S: Last Vital Signs Temp 97.8 F 04/14/19 11:36 Pulse 71 04/14/19 11:36 Resp 16 04/14/19 11:36 BP 154/84 H 04/14/19 11:36 Pulse Ox 95 04/14/19 11:36 - Orders/Labs/Meds Labs: Laboratory Tests 04/14/19 04/14/19 04/14/19 Range/Units 12:24 12:24 12:44 WBC 9.1 (4.5-11.0) K/uL RBC 5.08 (4.30-5.90) M/uL Hgb 16.1 H (12.0-15.0) g/dL Hct 47.3 (40.0-54.0) % MCV 93 (80-98) fL MCH 32 H (27-31) pg MCHC 34 (32-36) % Plt Count 362 (150-400) K/uL Neut % (Auto) 69 H (36-66) % Lymph % (Auto) 22 L (24-44) % [place] % (Auto) 7 H (2-6) % Eos % (Auto) 1 L (2-4) % Baso % (Auto) 1 (0-1) % Sodium 140 (140-148) mmol/L Potassium 4.4 (3.6-5.2) mmol/L Chloride 102 (100-108) mmol/L Carbon Dioxide 29 (21-32) mmol/L Anion Gap 9.1 (5.0-14.0) mmol/L BUN 9 (7-18) mg/dL Creatinine 1.1 (0.8-1.3) mg/dL Est Cr Clr Drug Dosing 88.60 mL/min Estimated GFR (MDRD) > 60 (>60) Glucose 108 H (74-106) mg/dL Calcium 9.3 (8.5-10.1) mg/dL Total Bilirubin 0.4 D (0.2-1.0) mg/dL AST 19 (15-37) U/L ALT 34 (12-78) U/L Alkaline Phosphatase 71 (46-116) U/L Total Protein 7.9 (6.4-8.2) g/dL Albumin 4.2 (3.4-5.0) g/dL Globulin 3.7 H (2.3-3.5) g/dL Albumin/Globulin Ratio 1.1 L (1.2-2.2) Urine Color Yellow (YELLOW) Urine Appearance Slightly cloudy A (CLEAR) Urine pH 6.0 (5.0-8.0) Ur Specific [place] 1.015 (1.008-1.030) Urine Protein Negative (NEGATIVE) mg/dL Urine Glucose (UA) Negative (NEGATIVE) mg/dL Urine Ketones Trace H (NEGATIVE) mg/dL Urine Occult Blood Negative (NEGATIVE) Urine Nitrite Negative (NEGATIVE) Urine Bilirubin Negative (NEGATIVE) Urine Urobilinogen 0.2 (0.2-1.0) EU/dL Ur Leukocyte Esterase Negative (NEGATIVE) Urine RBC 0-5 (0-5) Urine WBC 0-5 (0-5) Ur Epithelial Cells Few Amorphous Sediment Not seen Urine Bacteria Few Urine Mucus Few Urine Opiates Screen (NEGATIVE) Ur Oxycodone Screen (NEGATIVE) Urine Methadone Screen (NEGATIVE) Ur Propoxyphene Screen (NEGATIVE) Ur Barbiturates Screen (NEGATIVE) Ur Tricyclics Screen (NEGATIVE) Ur Phencyclidine Scrn (NEGATIVE) Ur Amphetamine Screen (NEGATIVE) U Methamphetamines Scrn (NEGATIVE) Urine MDMA Screen (NEGATIVE) U Benzodiazepines Scrn (NEGATIVE) U Cocaine Metab Screen (NEGATIVE) U Marijuana (THC) Screen (NEGATIVE) 04/14/19 Range/Units 12:44 WBC (4.5-11.0) K/uL RBC (4.30-5.90) M/uL Hgb (12.0-15.0) g/dL Hct (40.0-54.0) % MCV (80-98) fL MCH (27-31) pg MCHC (32-36) % Plt Count (150-400) K/uL Neut % (Auto) (36-66) % Lymph % (Auto) (24-44) % [place] % (Auto) (2-6) % Eos % (Auto) (2-4) % Baso % (Auto) (0-1) % Sodium (140-148) mmol/L Potassium (3.6-5.2) mmol/L Chloride (100-108) mmol/L Carbon Dioxide (21-32) mmol/L Anion Gap (5.0-14.0) mmol/L BUN (7-18) mg/dL Creatinine (0.8-1.3) mg/dL Est Cr Clr Drug Dosing mL/min Estimated GFR (MDRD) (>60) Glucose (74-106) mg/dL Calcium (8.5-10.1) mg/dL Total Bilirubin (0.2-1.0) mg/dL AST (15-37) U/L ALT (12-78) U/L Alkaline Phosphatase (46-116) U/L Total Protein (6.4-8.2) g/dL Albumin (3.4-5.0) g/dL Globulin (2.3-3.5) g/dL Albumin/Globulin Ratio (1.2-2.2) Urine Color (YELLOW) Urine Appearance (CLEAR) Urine pH (5.0-8.0) Ur Specific [place] (1.008-1.030) Urine Protein (NEGATIVE) mg/dL Urine Glucose (UA) (NEGATIVE) mg/dL Urine Ketones (NEGATIVE) mg/dL Urine Occult Blood (NEGATIVE) Urine Nitrite (NEGATIVE) Urine Bilirubin (NEGATIVE) Urine Urobilinogen (0.2-1.0) EU/dL Ur Leukocyte Esterase (NEGATIVE) Urine RBC (0-5) Urine WBC (0-5) Ur Epithelial Cells Amorphous Sediment Urine Bacteria Urine Mucus Urine Opiates Screen Negative (NEGATIVE) Ur Oxycodone Screen Negative (NEGATIVE) Urine Methadone Screen Negative (NEGATIVE) Ur Propoxyphene Screen Negative (NEGATIVE) Ur Barbiturates Screen Negative (NEGATIVE) Ur Tricyclics Screen Negative (NEGATIVE) Ur Phencyclidine Scrn Negative (NEGATIVE) Ur Amphetamine Screen Negative (NEGATIVE) U Methamphetamines Scrn Negative (NEGATIVE) Urine MDMA Screen Negative (NEGATIVE) U Benzodiazepines Scrn Negative (NEGATIVE) U Cocaine Metab Screen Negative (NEGATIVE) U Marijuana (THC) Screen Presumptive positive H (NEGATIVE) - Re-Assessments/Exams Free Text/Narrative Re-Assessment/Exam: 04/14/19 13:01 CBC, CMP, urine and urine drug screen were obtained. After discussing his situation with his mother, I called [facility] to see if they had an opening for admission to stabilize this patient and was told to call back in 1 hour. I will call when labs have returned. I do not suspect any abnormalities to be shown on the labs. 04/14/19 13:29 Labs are reassuring, urine tox screen is positive only for marijuana. [facility] is used at their last psychiatric bed, and his mom explained that he has an appointment with psychiatry on Tuesday. I think he is safe to keep that appointment. They do not want me to pursue any admission elsewhere. Departure - Departure Time of Disposition: 13:36 Disposition: Home, Self-Care 01 Clinical Impression: Schizo affective schizophrenia - Discharge Information Instructions: [facility] Referrals: PCP,None [Primary Care Provider] - Forms: ED Department Discharge Care Plan Goals: Keep your appointment on Tuesday as scheduled. Sepsis Event Note - Focused Exam Vital Signs: Vital Signs Temp Pulse Resp BP Pulse Ox 04/14/19 11:36 97.8 F 71 16 154/84 H 95 04/14/19 11:04 97.8 F 71 16 154/84 H 95 Date Exam was Performed: 04/14/19 Time Exam was Performed: 14:29
== END 2019-04-14 13:37 | disposition home or self-care (01) ==
LOC: JP.ED 10:10
DX: F25.9 Schizoaffective disorder, unspecified (principal); Z86.73 Personal history of transient ischemic attack (TIA), and cerebral infarction without residual deficits; Z88.1 Allergy status to other antibiotic agents
CPT/HCPCS: 36415; 80053; 80305-QW; 81001; 85025; 99283; 99284